=== PATIENT | female | born 1940 | race Caucasian/White ===

== ENCOUNTER → 2017-03-23 13:49 | Outpatient (CLI) | payer MEDICARE, SELFPAY | PROVIDERS: Family Provider Internal Medicine; PCP Internal Medicine; Visit Provider Internal Medicine Medical Oncology | DX: R69 Illness, unspecified (principal) ==

== ENCOUNTER → 2018-09-14 08:18 | Outpatient (CLI) | payer MEDICARE, SELFPAY ==
--- NOTE | 2018-09-14 08:25 | BD_ITS ---
STUDY: DUAL ENERGY X-RAY ABSORPTIOMETRY / DXA REASON FOR EXAM: Female, 78 years old. The patient is postmenopausal. Loss of height. TECHNIQUE: Bone Mineral Density (BMD) measurements of lumbar spine and bilateral hips were obtained. COMPARISON: Comparison is made with prior study dated September 04, 2014. FINDINGS: Lumbar Spine (L1-L4): g/cm2 (1.087) / T-score (-0.7) / Z-score (1.2) Findings are suggestive of normal bone density with a low fracture risk. Left Femur Total: g/cm2 (0.801) / T-score (-1.6) / Z-score (0.3) Left Femoral Neck: g/cm2 (0.717) / T-score (-2.3) / Z-score (-0.2) Right Femur Total: g/cm2 (0.744.) / T-score (-2.1) / Z-score (-0.1) Right Femoral Neck: g/cm2 (0.702) / T-score (-2.4) / Z-score (-0.3) The T-Scores on the most recent prior examination were: Lumbar Spine (L1-L4): There has been improvement of bone density since the previous examination. Left Femur Total: which represents a worsening of 5.9%. Right Femur Total: which represents a worsening of 1.5%. BD/Dexa Bone Density Study IMPRESSION: The patient is considered osteopenic as outlined below according to World Wisam Organization (WHO) criteria with a moderate fracture risk. There has been worsening of bone density since the previous examination. Reference Information: The T-score is the number of standard deviations above or below the standard which is normal for young adults at their peak bone mineral density. The World Health Organization (WHO) interprets the T-scores as follows: Above -1 Normal bone density Between -1 and -2.5 Osteopenia Equal to / or below -2.5 Osteoporosis As a practical clinical guideline, osteopenia may be graded as follows: Mild -1 through -1.5 Moderate -1.6 through -2.0 Severe -2.1 through -2.4 The Z-score is the number of standard deviations above or below age-matched controls. A Z-score of less than -1.5 would be considered abnormal. References: 1. NIH Osteoporosis and Related Bone Diseases http://www.osteo.org 2. International Society for Clinical Densitometry http://www.iscd.org 3. National Osteoporosis Foundation http://www.nof.org Electronically Signed: Anjel Li MD at 16:00 EST Tel [phone], Service support ,
== END ==
PROVIDERS: Family Provider Internal Medicine; PCP Internal Medicine; Referring Provider Internal Medicine Medical Oncology; Visit Provider Internal Medicine Medical Oncology
DX: M85.80 Other specified disorders of bone density and structure, unspecified site (principal); Z78.0 Asymptomatic menopausal state
CPT/HCPCS: 77080

== ENCOUNTER → 2018-12-05 08:30 | Outpatient (CLI) | payer MEDICARE, SELFPAY ==
--- NOTE | 2018-12-05 08:33 | BI_ITS ---
MAMMOGRAPHY - UNILATERAL DIAGNOSTIC: LEFT BREAST REASON FOR EXAM: Female, 78 years old. Prior right mastectomy. Left stereotactic breast biopsy. PERTINENT HISTORY: Personal history of breast cancer. TECHNIQUE: Digital unilateral breast guille (3D mammographic acquisition) in the CC and MLO projections. 2-D mediolateral oblique (MLO) and craniocaudad (CC) views of both breasts were obtained. CAD: Full Field Digital Mammography with Computer Added Detection was performed. COMPARISON: Comparison is made with prior study dated 2017 and December 01, 2016. FINDINGS: Breast Composition: The breasts are almost entirely fatty. There are no dominant masses or suspicious calcifications. Once again, a tissue clip marker is seen in the inferior medial aspect of the breast. No other significant abnormalities are identified. There has been no significant change since the prior study. BI/UNILAT LT SCRN W/CAD IMPRESSION: Stable unilateral diagnostic mammogram. One year follow-up mammogram recommended. (A) ASSESSMENT CATEGORY: BIRADS Category 2: Benign. A letter regarding these results will be sent to the patient by the facility within 30 days. Approximately 10% of breast cancers are not detected by mammography. A normal mammogram should not delay biopsy of a clinically suspicious abnormality. Electronically Signed: Anjel Li MD at 8:51 EST , Service support ,
== END ==
PROVIDERS: Family Provider Internal Medicine; PCP Internal Medicine; Referring Provider Internal Medicine Medical Oncology; Visit Provider Internal Medicine Medical Oncology
DX: Z12.31 Encounter for screening mammogram for malignant neoplasm of breast (principal); Z85.3 Personal history of malignant neoplasm of breast
CPT/HCPCS: 77061; 77063; 77067; G0279

== ENCOUNTER → 2019-12-11 08:25 | Outpatient (CLI) | payer MEDICARE, SELFPAY ==
[2019-10-09 13:17] VITALS: BMI 37.3
--- NOTE | 2019-12-11 08:29 | BI_ITS ---
MAMMOGRAPHY - UNILATERAL SCREENING: LEFT BREAST REASON FOR EXAM: Female, 79 years old. Routine annual screening examination (unilateral). PERTINENT HISTORY: Personal history of breast cancer. Prior right mastectomy. Prior left stereotactic breast biopsy. TECHNIQUE: Digital unilateral breast david (3D mammographic acquisition) in the CC and MLO projections. 2-D mediolateral oblique (MLO) and craniocaudad (CC) views of both breasts were obtained. CAD: Full Field Digital Mammography with Computer Added Detection was performed. COMPARISON: Comparison is made with prior study dated June 04, 2019 and December 02, 2017. FINDINGS: Breast Composition: The breasts are almost entirely fatty. There are no dominant masses or suspicious calcifications. A tissue clip marker is once again seen in the slightly inferior medial aspect of the left breast. No other significant abnormalities are identified. There has been no significant change since the prior study. BI/SCREEN MAMM (CAD) W/DAVID UNI L IMPRESSION: Stable unilateral screening mammogram. Yearly follow-up mammogram recommended. (A) ASSESSMENT CATEGORY: BIRADS Category 2: Benign. A letter regarding these results will be sent to the patient by the facility within 30 days. Approximately 10% of breast cancers are not detected by mammography. A normal mammogram should not delay biopsy of a clinically suspicious abnormality. [id number] Electronically Signed: Anjel Li, at 10:00 EST , Service support ,
[2019-12-11 09:11] LABS: Absolute Lymphocyte Count 1.04 X10^3/uL (0.83-4.51); Absolute Neutrophil Count 5.1 X10^3/uL (2.0-7.7); Basophil# 0.03 X10^3/uL; Basophil% 0.4 % (0-1); Eosinophil# 0.23 X10^3/uL; Eosinophils% 3.3 % (0-5); Hematocrit 43.5 % (37-47); Hemoglobin 13.9 g/dL (12.0-15.0); Lymphocyte # 1.04 X10^3/ul (4.0); Mean Corpuscular Hgb 28.8 pg (27.0-32.0); Mean Corpuscular Volume 90.2 fL (81-99); Mean Platelet Vol. 9.4 fl (6.2-12.0); Monocyte# 0.52 X10^3/uL; Monocyte% 7.5 % (0-10); NRBC Flagged by Analyzer 0 % (0-5); Neutrophil # 5.09 X10^3/uL (2.7-7.7); Neutrophil % 73.4 % (47-70); Platelet Count 234 K/mm3 (150-450); RBC Distribution Width CV 13.2 % (11.6-14.6); RBC Distribution Width SD 43.4 fl (35.1-43.9); Red Blood Count 4.82 M/mm3 (4.2-5.4); White Blood Count 6.9 K/mm3 (4.4-11.0)
[2019-12-11 09:28] LABS: ALB/GLOB Ratio 0.8 RATIO (0.9-2.4); AST(SGOT) 15 U/L (15-37); Alanine Aminotransfer ALT/SGPT 23 U/L (13-56); Albumin, Serum 3.4 g/dL (3.2-5.0); Alkaline Phosphatase 75 U/L (45-117); Anion Gap 5 (5-15); BUN 26 mg/dL (7-18); BUN/Creat Ratio 22.8 RATIO (10-20); Calcium,Total 9.7 mg/dL (8.5-10.1); Chloride 105 mmol/L (98-107); Creatinine, Serum 1.14 mg/dL (0.55-1.02); EST Glomerular Filtration Rate 49 mL/min (>60); Est Glom Filt Rate - Afr Amer 59 mL/min (>60); Globulin 4.4 g/dL (2.2-4.2); Glucose 116 mg/dL (74-106); Potassium 3.8 mmol/L (3.5-5.1); Protein, Total 7.8 g/dL (6.4-8.2); Sodium Level 139 mmol/L (136-145)
[2019-12-11 09:43] LABS: Microalbumin,Random Urine 5.2 mg/L (NO RANGE EST.); Microalbumin:Creatinine Ratio 7.5 mg/g CRE (<30 mg/g CRE)
[2019-12-11 10:06] LABS: Vitamin D,25 Hydroxy 28.2 ng/mL (29.95-100.01)
== END ==
LOC: OPBI 08:25 → PAVLAB 08:47
PROVIDERS: Family Provider Internal Medicine; PCP Internal Medicine; Referring Provider Internal Medicine; Visit Provider Internal Medicine Medical Oncology
DX: E55.9 Vitamin D deficiency, unspecified (principal); E11.9 Type 2 diabetes mellitus without complications; Z12.31 Encounter for screening mammogram for malignant neoplasm of breast; Z85.3 Personal history of malignant neoplasm of breast
CPT/HCPCS: 36415; 77063; 77067; 80053; 82043; 82306; 82570; 85025

== ENCOUNTER 2020-04-19 06:20 | Day surgery (SDC) | payer MEDICARE, SELFPAY ==
--- NOTE | 2020-03-19 02:06 | HP_ITS ---
Intake Vital Signs 03/19/20 Height 5 ft 03/19/20 Weight: 192 lb 8 oz 03/19/20 BMI 37.5 03/19/20 BP 164/101 H 03/19/20 Blood Pressure Location Lt brachial 03/19/20 Position Sitting 03/19/20 Respiration 18 03/19/20 Pulse 99 03/19/20 Pulse Source Monitor 03/19/20 Temp 98.3 F 03/19/20 Temp Source Oral 03/19/20 Pulse Oximetry (%) 97 03/19/20 Oxygen Delivery Method room air Intake Visit Reasons: CSCOPE/ COLON POLYPS Chief Complaint: colonoscopy/history colon polyps Channel Worker Required: No Is patient in pain?: No Allergies No Known Allergies Allergy (Verified 03/19/20 13:39) Medications Mcgraw-3 Fatty Acids/Fish Oil [Mcgraw 3 1,000 mg Softgel] 4 tab PO DAILY 03/25/15 [History Confirmed 03/19/20] Triamterene 37.5MG/Hctz 25MG [Dyazide (G)] 1 cap PO DAILY 03/25/15 [History Confirmed 03/19/20] Atorvastatin Calcium [Lipitor] 10 mg PO QHS 03/23/17 [History Confirmed 03/19/20] Ramipril [Altace] 5 mg PO DAILY 03/23/17 [History Confirmed 03/19/20] [facility] Medical History (Updated 03/19/20 @ 14:[address] Freddy Schwab MD) History of colon polyps (Acute) Glaucoma (Acute) Monoclonal gammopathy (Acute) Polyclonal gammopathy (Acute) Hypertension (Chronic) Surgical History (Updated 03/19/20 @ 13:36 by Kym Chavarria) H/O cataract extraction (Acute) History of colonoscopy (Acute ~2013) History of hysterectomy (Acute) History of knee replacement (Acute) History of right mastectomy (Acute) Social History (Updated 03/19/20 @ 14:[address] Freddy Schwab MD) Smoking Status: Never smoker HPI HPI HPI: JARRET MANRIQUEZ, is a 80 F who presents to the office today for HPI HPI Surgical H&P: Yes HPI: JARRET MANRIQUEZ, is a 80 F who presents to the office today for surgical consultation regarding a personal history of colon polyps and recommendation to proceed with a colonoscopy. The patient is referred by Dr. Mary Mcduffie and a written copy of my surgical consult recommendations will be returned to her. 87-year-old [facility] female. Her most recent colonoscopy was performed by Dr. Jeffery Villanueva October 02, 2014. A tubular adenoma of the descending colon was removed at that time. Recommendations by Dr. Jeffery Villanueva was to have a follow-up colonoscopy at 4 years. Apparently he has been contacted and he has declined to proceed with that recommended colonoscopy because of her age of 79. It is felt however that she is enjoying a good quality of life. She does have a sister who lived to age 92. She herself is enjoying what she feels is a good quality of life. She has had no bright red blood per rectum or melena. No abdominal pain. No unexpected weight loss. She is able to climb a flight of stairs. She denies chest pain or dyspnea on exertion. She does have some chronic lower extremity swelling. She takes a diuretic. She denies history of deep venous thrombosis. She denies known family history of colon cancer. ROS General General: Yes breast cancer; no weight change, appetite, fatigue, colon cancer or weakness HEENT HEENT: No difficulty swallowing, eye injury, eye surgery, swollen glands or hoarseness Endo Endocrine: Yes diabetes mellitus; no thyroid disease, thyroid cancer, Hair loss, heat intolerance or cold intolerance Skin Skin: No rash or changing moles Breast Breast: No left breast lump, right breast lump, nipple discharge, breast pain, abnormal mammogram, abnormal US or breast enlargement Musc Musculoskeletal: Yes back problems and gout; no arthritis, rheumatoid arthritis or joint pain Cardio Cardiovascular: Yes high blood pressure; no murmur, pacemaker, heart disease, atrial fibrillation, heart attack, heart stent, palpitations, shortness of breat with exertion or chest pain Psych Psychiatric: No depression, anxiety or hearing voices Resp Respiratory: No shortness of breath, No sleep apnea, No cough, No COPD, No asthma, No emphysema, No wheezing Gastro Gastrointestinal: No abdominal pain, No nausea or vomiting, No diarrhea, No constipation, No blood in stool, No acid reflux, No hemorrhoids, No ulcers, No gallbladder problem, No black,tarry stools James Hematologic: No blood thinners, No blood disorders, No bleeding, No anemia, No blood clots Neuro Neurologic: No system reviewed and no additional complaints, except as docu, No as per HPI, No abnormal walking, No abnormal hearing, No abnormal movements, No abnormal speech, No behavioral changes, No burning sensations, No confusion, No seizure-like activity, No unsteadiness, No dizziness, No localized weakness, No frequent falls, No headache(s), No lack of coordination, No loss of vision, No memory loss, No numbness, No other visual disturbances, No radiating pain, No restless legs, No sensory deficit, No fainting, No tingling, No tremor(s), No weakness, No other Exam Const General: cooperative, healthy appearing, comfortable, no acute distress Nutritional Appearance: obese Orientation: alert, awake, oriented x3 HENMT Head: normal to inspection Eyes General: appearance normal, both eyes and all related structures Chest Chest palpation & inspection: normal inspection of the chest Breast Palpation: No nipple discharge Resp Effort & Inspection: normal respiratory effort Auscultation: clear to auscultation bilaterally Cardio Rate: regular rate Rhythm: regular rhythm Heart Sounds: no murmurs GI Palpation: soft, no hepatosplenomegaly Auscultation: normal bowel sounds Neuro Cognition: normal cognition Extrem Other: 1-2+ non-pitting bilateral lower extremity swelling Psych Affect: normal affect Assessment & Plan Problems 1. Personal history of colonic polyps Z86.010 Plan 79-year-old [place] female who has remote history of breast cancer successfully treated. She has had a personal history of colon polyp with previous colonoscopy September 2014. Tubular adenoma of the descending colon identified at that time. Recommendations for follow-up colonoscopy at 4 years. The patient otherwise is enjoying a good quality of life currently. I believe that she is at increased risk. In great detail I have discussed with her the technique, benefit, risk and alternatives of a surveillance colonoscopy. She has had an opportunity to ask and have questions answered. She is aware that based upon her age she is at higher interventional risk. She is aware that secondary to the Covid-19 pandemic that preintervention testing will be obtained. She concurs and would like to schedule and proceed. I appreciate the opportunity of assisting with her surgical care Cc: Dr. Mary Schwab M.D., F.A.C.S. Orders Orders: Colonoscopy Today Coding Level of Care Code 50718 Diagnoses Personal history of colonic polyps Z86.010 03/19/20 1409 <Electronically signed by Freddy esparza MD> Date _ Freddy Schwab MD
[2020-03-19 13:39] VITALS: BMI 37.3
--- NOTE | 2020-04-19 06:56 | PCM.HP.BLA ---
Problem List (1) Personal history of colonic polyps Status: Acute History and Physical Date of Admission: 04/19/20 Intake Visit Reasons: CSCOPE/ COLON POLYPS Chief Complaint: colonoscopy/history colon polyps Publishing Director Required: No Is patient in pain?: No Allergies No Known Allergies Allergy (Verified 03/19/20 13:39) Medications Weare-3 Fatty Acids/Fish Oil [Weare 3 1,000 mg Softgel] 4 tab PO DAILY 03/25/15 [History Confirmed 03/19/20] Triamterene 37.5MG/Hctz 25MG [Dyazide (G)] 1 cap PO DAILY 03/25/15 [History Confirmed 03/19/20] Atorvastatin Calcium [Lipitor] 10 mg PO QHS 03/23/17 [History Confirmed 03/19/20] Ramipril [Altace] 5 mg PO DAILY 03/23/17 [History Confirmed 03/19/20] [facility] Medical History (Updated 03/19/20 @ 14:[address] Freddy Schwab MD) History of colon polyps (Acute) Glaucoma (Acute) Monoclonal gammopathy (Acute) Polyclonal gammopathy (Acute) Hypertension (Chronic) Surgical History (Updated 03/19/20 @ 13:36 by Kym Chavarria) H/O cataract extraction (Acute) History of colonoscopy (Acute ~2013) History of hysterectomy (Acute) History of knee replacement (Acute) History of right mastectomy (Acute) Social History (Updated 03/19/20 @ 14:[address] Freddy Schwab MD) Smoking Status: Never smoker HPI HPI HPI: JARRET MANRIQUEZ, is a 80 F who presents to the office today for HPI HPI Surgical H&P: Yes HPI: JARRET MANRIQUEZ, is a 80 F who presents to the office today for surgical consultation regarding a personal history of colon polyps and recommendation to proceed with a colonoscopy. The patient is referred by Dr. Mary Mcduffie and a written copy of my surgical consult recommendations will be returned to her. 87-year-old [place] female. Her most recent colonoscopy was performed by Dr. Jeffery Villanueva October 02, 2014. A tubular adenoma of the descending colon was removed at that time. Recommendations by Dr. Jeffery Villanueva was to have a follow-up colonoscopy at 4 years. Apparently he has been contacted and he has declined to proceed with that recommended colonoscopy because of her age of 79. It is felt however that she is enjoying a good quality of life. She does have a sister who lived to age 92. She herself is enjoying what she feels is a good quality of life. She has had no bright red blood per rectum or melena. No abdominal pain. No unexpected weight loss. She is able to climb a flight of stairs. She denies chest pain or dyspnea on exertion. She does have some chronic lower extremity swelling. She takes a diuretic. She denies history of deep venous thrombosis. She denies known family history of colon cancer. ROS General General: Yes breast cancer; no weight change, appetite, fatigue, colon cancer or weakness HEENT HEENT: No difficulty swallowing, eye injury, eye surgery, swollen glands or hoarseness Endo Endocrine: Yes diabetes mellitus; no thyroid disease, thyroid cancer, Hair loss, heat intolerance or cold intolerance Skin Skin: No rash or changing moles Breast Breast: No left breast lump, right breast lump, nipple discharge, breast pain, abnormal mammogram, abnormal US or breast enlargement Musc Musculoskeletal: Yes back problems and gout; no arthritis, rheumatoid arthritis or joint pain Cardio Cardiovascular: Yes high blood pressure; no murmur, pacemaker, heart disease, atrial fibrillation, heart attack, heart stent, palpitations, shortness of breat with exertion or chest pain Psych Psychiatric: No depression, anxiety or hearing voices Resp Respiratory: No shortness of breath, No sleep apnea, No cough, No COPD, No asthma, No emphysema, No wheezing Gastro Gastrointestinal: No abdominal pain, No nausea or vomiting, No diarrhea, No constipation, No blood in stool, No acid reflux, No hemorrhoids, No ulcers, No gallbladder problem, No black,tarry stools James Hematologic: No blood thinners, No blood disorders, No bleeding, No anemia, No blood clots Neuro Neurologic: No system reviewed and no additional complaints, except as docu, No as per HPI, No abnormal walking, No abnormal hearing, No abnormal movements, No abnormal speech, No behavioral changes, No burning sensations, No confusion, No seizure-like activity, No unsteadiness, No dizziness, No localized weakness, No frequent falls, No headache(s), No lack of coordination, No loss of vision, No memory loss, No numbness, No other visual disturbances, No radiating pain, No restless legs, No sensory deficit, No fainting, No tingling, No tremor(s), No weakness, No other Exam Const General: cooperative, healthy appearing, comfortable, no acute distress Nutritional Appearance: obese Orientation: alert, awake, oriented x3 HENMT Head: normal to inspection Eyes General: appearance normal, both eyes and all related structures Chest Chest palpation & inspection: normal inspection of the chest Breast Palpation: No nipple discharge Resp Effort & Inspection: normal respiratory effort Auscultation: clear to auscultation bilaterally Cardio Rate: regular rate Rhythm: regular rhythm Heart Sounds: no murmurs GI Palpation: soft, no hepatosplenomegaly Auscultation: normal bowel sounds Neuro Cognition: normal cognition Extrem Other: 1-2+ non-pitting bilateral lower extremity swelling Psych Affect: normal affect Assessment & Plan Problems 1. Personal history of colonic polyps Z86.010 Plan 79-year-old [facility] female who has remote history of breast cancer successfully treated. She has had a personal history of colon polyp with previous colonoscopy September 2014. Tubular adenoma of the descending colon identified at that time. Recommendations for follow-up colonoscopy at 4 years. The patient otherwise is enjoying a good quality of life currently. I believe that she is at increased risk. In great detail I have discussed with her the technique, benefit, risk and alternatives of a surveillance colonoscopy. She has had an opportunity to ask and have questions answered. She is aware that based upon her age she is at higher interventional risk. She is aware that secondary to the Covid-19 pandemic that preintervention testing will be obtained. She concurs and would like to schedule and proceed. I appreciate the opportunity of assisting with her surgical care Cc: Dr. Mary Schwab M.D., F.A.C.S. Orders Orders: Colonoscopy Today Coding Level of Care Code 66812 Diagnoses Personal history of colonic polyps Z86.010 03/19/20 1409 <Electronically signed by Freddy Schwab MD> Date Freddy Schwab MD I have re-examined the patient. There are no clinical changes since date of exam. Procedure Criteria Procedure Type: Elective COVID Risk Discussion: The surgeon/proceduralist and patient have discussed in detail the risk of exposure to and/or potential harm posed by the COVID-19 virus with having a surgery/procedure at this time versus the risk of delaying the surgery/procedure. It is not possible to know either the risk of delaying the surgery or procedure or chance of getting an infection with perfect accuracy, but a joint decision was made between the patient and the surgeon/proceduralist to proceed at this time with the scheduled surgery/procedure as indicated on the consent form.
[2020-04-19 06:57] VITALS: BP 147/65; PULSE 70; RESP 16; TEMP 36.6; O2SAT 96; BMI 34.0
[2020-04-19] MEDS: Lactated Ringers 1,000 ML 100 ML IV (07:06)
[2020-04-19 08:08] VITALS: BP 120/57; BP 147/65; PULSE 66; RESP 14; TEMP 36.4; O2SAT 100
[2020-04-19 08:10] VITALS: BP 116/56; BP 147/65; PULSE 66; RESP 14; O2SAT 100
--- NOTE | 2020-04-19 08:12 | OP.CCLET_ITS ---
04/19/2020 Mary Mcduffie Re : Colonoscopy procedure for Alivia Huerta Dear Froy This procedure was performed on Sunday, April 19, 2020. My impressions and recommendations are as follows: Impressions : - Non-thrombosed external hemorrhoids, non-thrombosed internal hemorrhoids and internal hemorrhoids that prolapse with straining, but spontaneously regress to the resting position (Grade II) found on digital rectal exam. - Tortuous colon. - The examination was otherwise normal. - No specimens collected. Recommendations : - Discharge patient to home. - Resume previous diet. - Continue present medications. - Repeat colonoscopy is not recommended due to current age (66 years or older) for screening purposes. My findings are described in the full procedure note, which is enclosed. If I can be of further assistance, please feel free to contact me at Doctor phone number(s): Work: . Sincerely, Freddy Schwab MD 04/19/2020 8:12:00 AM This report has been signed electronically.
--- NOTE | 2020-04-19 08:12 | OP.COLON_ITS ---
Patient Name: Alivia Huerta Procedure Date: 04/19/2020 7:43 AM Date of : 1940 Age: 80 Procedure: Colonoscopy Indications: High risk colon cancer surveillance: Personal history of colonic polyps Providers: Freddy Schwab MD Referring MD: Mary Mcduffie Medicines: See the Anesthesia note for documentation of the administered medications Patient Profile: Last Colonoscopy: September 2014. Complications: No immediate complications. Procedure: Pre-Anesthesia Assessment: - Prior to the procedure, a History and Physical was performed, and patient medications and allergies were reviewed. The patient's tolerance of previous anesthesia was also reviewed. The risks and benefits of the procedure and the sedation options and risks were discussed with the patient. All questions were answered, and informed consent was obtained. Prior Anticoagulants: The patient has taken no previous anticoagulant or antiplatelet agents. ASA Grade Assessment: II - A patient with mild systemic disease. After reviewing the risks and benefits, the patient was deemed in satisfactory condition to undergo the procedure. After I obtained informed consent, the scope was passed under direct vision. Throughout the procedure, the patient's blood pressure, pulse, and oxygen saturations were monitored continuously. The colonoscope was introduced through the anus and advanced to the cecum, identified by appendiceal orifice and ileocecal valve. The colonoscopy was performed without difficulty. The patient tolerated the procedure well. The quality of the bowel preparation was good. The ileocecal valve and the appendiceal orifice were photographed. Scope In: 7:51:43 AM Scope Withdrawal Time 0 hours 6 minutes 50 seconds Scope Out: 8:03:42 AM Total Procedure Duration Time 0 hours 11 minutes 59 seconds Findings: The digital rectal exam findings include non-thrombosed external hemorrhoids, non-thrombosed internal hemorrhoids and internal hemorrhoids that prolapse with straining, but spontaneously regress to the resting position (Grade II). The colon (entire examined portion) was moderately tortuous. Advancing the scope required using manual pressure. The exam was otherwise without abnormality. Impression: - Non-thrombosed external hemorrhoids, non-thrombosed internal hemorrhoids and internal hemorrhoids that prolapse with straining, but spontaneously regress to the resting position (Grade II) found on digital rectal exam. - Tortuous colon. - The examination was otherwise normal. - No specimens collected. Recommendation: - Discharge patient to home. - Resume previous diet. - Continue present medications. - Repeat colonoscopy is not recommended due to current age (66 years or older) for screening purposes. Procedure Code(s): --- Professional --- 29146, Colonoscopy, flexible; diagnostic, including collection of specimen(s) by brushing or washing, when performed (separate procedure) Diagnosis Code(s): --- Professional --- Z86.010, Personal history of colonic polyps K64.1, Second degree hemorrhoids K64.4, Residual hemorrhoidal skin tags Q43.8, Other specified congenital malformations of intestine CPT copyright 2017 [employer]. All rights reserved. The codes documented in this report are preliminary and upon rodent control worker review may be revised to meet current compliance requirements. Freddy Schwab MD 04/19/2020 8:12:00 AM This report has been signed electronically. Number of Addenda: 0 Note Initiated On: 04/19/2020 7:43 AM
[2020-04-19 08:15] VITALS: BP 119/62; BP 147/65; PULSE 66; RESP 14; O2SAT 100
[2020-04-19 08:24] VITALS: BP 116/60; BP 147/65; PULSE 65; RESP 14; TEMP 36.3; O2SAT 100
[2020-04-19] MEDS: Cefazolin 2 GM in 0.9% Normal Saline 100 ML IV (08:56)
[2020-04-19 10:09] VITALS: BP 147/65
== END 2020-04-19 10:12 | disposition home or self-care (01) ==
LOC: EN 06:20 → AC 06:21
PROVIDERS: Anesthesiology; PCP Internal Medicine; Referring Provider Internal Medicine; Visit Provider Surgery
PROC: 0DJD8ZZ Inspection of Lower Intestinal Tract, Via Natural or Artificial Opening Endoscopic (ICD-10-PCS; CPT 45378; principal; 2020-04-19 07:25)
DX: Z12.11 Encounter for screening for malignant neoplasm of colon (principal); K64.1 Second degree hemorrhoids; K64.4 Residual hemorrhoidal skin tags; Q43.8 Other specified congenital malformations of intestine; I10 Essential (primary) hypertension; Z86.010 Personal history of colon polyps; Z85.3 Personal history of malignant neoplasm of breast; Z79.899 Other long term (current) drug therapy; Z11.59 Encounter for screening for other viral diseases
CPT/HCPCS: G0105; 87635; G2023; J7120; J2405; U0003

== ENCOUNTER → 2020-04-23 09:58 | Outpatient (CLI) | payer MEDICARE, SELFPAY ==
[2020-03-19 13:39] VITALS: BMI 37.3
[2020-04-19 06:57] VITALS: BMI 34.0
--- NOTE | 2020-04-23 10:05 | CDU_ITS ---
Reason For Study: Carotid atherosclerosis Rt. Velocities/BP Lt. Velocities/BP Prox CCA 94.3/13.4 cm/sec. Prox CCA 79.6/15.6 cm/sec. Mid CCA 73.4/16 cm/sec. Mid CCA 70.4/13.9 cm/sec. Dist CCA 65.6/17.3 cm/sec. Dist CCA 56.9/11.4 cm/sec. Prox ICA 52/11.3 cm/sec. Prox ICA 44.7/10.7 cm/sec. Mid ICA 84.9/28.9 cm/sec. Mid ICA 64/22.5 cm/sec. Dist ICA 64/23.1 cm/sec. Dist ICA 94.9/29.6 cm/sec. Rt. ICA/CCA = 1.2. Lt. ICA/CCA = 1.3. Prox ECA 84.9/10.2 cm/sec. Prox ECA 80.2/5.3 cm/sec. Rt. Vert. 25.8 cm/sec. Lt. Vert. 45.4/12.4 cm/sec. Right Extracranial There is intimal thickening but no significant atherosclerotic plaque noted in the right common carotid artery. There is homogeneous, irregular atherosclerotic plaque noted in the right internal carotid artery. There is intimal thickening but no significant atherosclerotic plaque noted in the right external carotid artery. Antegrade flow is noted in the right vertebral artery. Abnormal waveforms noted in the right vertebral artery. Left Extracranial There is intimal thickening but no significant atherosclerotic plaque noted in the left common carotid artery. There is heterogeneous, irregular atherosclerotic plaque noted in the left internal carotid artery. There is intimal thickening but no significant atherosclerotic plaque noted in the left external carotid artery. Antegrade flow is noted in the left vertebral artery. Procedure Carotid Duplex [id number]. Exam performed in department. Interpretation Summary Mild (<50%) stenosis right extracranial internal carotid. Mild (<50%) stenosis left extracranial internal carotid. Flow within the vertebral arteries is antegrade bilaterally. An abnormal right vertebral artery waveform suggests occlusion distal to the level of imaging. Clinical correlation is advised. Ordering Physician: Mary Mcduffie Referring Physician: Mary Mcduffie Performed By: Elizabeth Olivas RVT
== END ==
PROVIDERS: PCP Internal Medicine; Referring Provider Internal Medicine; Visit Provider Internal Medicine
DX: I65.23 Occlusion and stenosis of bilateral carotid arteries (principal)
CPT/HCPCS: 93880

== ENCOUNTER 2020-08-21 20:52 | Inpatient (IN) | payer MEDICARE, SELFPAY ==
[2020-08-21 20:53] VITALS: BP 144/78; PULSE 91; RESP 18; TEMP 36.8; O2SAT 92; BMI 35.9
--- NOTE | 2020-08-21 21:45 | EKG12_ITS ---
Test Reason : COUGH Blood Pressure : / mmHG Vent. Rate : 078 BPM Atrial Rate : 078 BPM P-R Int : 294 ms QRS Dur : 084 ms QT Int : 406 ms P-R-T Axes : 033 -19 024 degrees QTc Int : 462 ms Sinus rhythm with 1st degree A-V block Otherwise normal ECG Confirmed by MILAN URRUTIA, JW ([id number]), editorial assistant YISEL DORSEY ([id number]) on 08/27/2020 8:13:37 AM Referred By: BRYANT Confirmed By:JW YATES MD
--- NOTE | 2020-08-21 22:05 | RAD_ITS ---
STUDY: X-RAY CHEST REASON FOR EXAM: Female, 80 years old. PT ARRIVES WITH 2 WEEK LONG ILLNESS THAT HAS CAUSED WEAKNESS AND COUGH TECHNIQUE: AP portable COMPARISON: 11/21/2014 FINDINGS: Nonspecific elevation of right hemidiaphragm.. There is interstitial thickening in both lower lobes with patchy densities possibly representing atypical viral pneumonia. There is no demonstrated pleural abnormality. Normal size heart. Normal mediastinum and sha. Normal visualized pulmonary arteries. Mildly calcified aortic arch and descending thoracic aorta. Normal visualized thoracic spine. Normal visualized ribs, clavicles, and shoulders. There is no demonstrated abnormality of the visualized soft tissue structures of the upper abdomen. RAD/Chest 1 View (Portable) IMPRESSION: Findings suspicious for Covid 19 pneumonia. Clinical correlation recommended. Electronically Signed: Darrion Haskins MD at 22:32 EDT , Service support ,
[2020-08-21 22:07] LABS: Absolute Lymphocyte Count 0.41 X10^3/uL (0.83-4.51); Absolute Neutrophil Count 6.1 X10^3/uL (2.0-7.7); Basophil# 0.02 X10^3/uL; Basophil% 0.3 % (0-1); Eosinophil# 0.03 X10^3/uL; Eosinophils% 0.4 % (0-5); Hematocrit 42.9 % (37-47); Hemoglobin 13.9 g/dL (12.0-15.0); Lymphocyte # 0.41 X10^3/ul (4.0); Lymphocyte % 5.8 % (19-41); Mean Corp Hgb Conc 32.4 g/dL (32-36); Mean Corpuscular Volume 89.4 fL (81-99); Mean Platelet Vol. 9.1 fl (6.2-12.0); Monocyte# 0.53 X10^3/uL; Monocyte% 7.5 % (0-10); NRBC Flagged by Analyzer 0 % (0-5); Neutrophil # 6.08 X10^3/uL (2.7-7.7); Neutrophil % 85.4 % (47-70); POSITIVE DIFFERENTIAL YES; Platelet Count 292 K/mm3 (150-450); RBC Distribution Width CV 13.1 % (11.6-14.6); RBC Distribution Width SD 42.9 fl (35.1-43.9); White Blood Count 7.1 K/mm3 (4.4-11.0)
[2020-08-21 22:13] LABS: Differential Indicated SCAN CRITERIA MET
[2020-08-21 22:26] LABS: ALB/GLOB Ratio 0.6 RATIO (0.9-2.4); AST(SGOT) 39 U/L (15-37); Alanine Aminotransfer ALT/SGPT 62 U/L (13-56); Albumin, Serum 2.9 g/dL (3.2-5.0); Alkaline Phosphatase 57 U/L (45-117); Anion Gap 9 (5-15); BUN 19 mg/dL (7-18); BUN/Creat Ratio 19.3 RATIO (10-20); Calcium,Total 9.3 mg/dL (8.5-10.1); Chloride 102 mmol/L (98-107); Creatinine, Serum 0.98 mg/dL (0.55-1.02); EST Glomerular Filtration Rate 58 mL/min (>60); Est Glom Filt Rate - Afr Amer 70 mL/min (>60); Estimated Creatinine Clearance 32.34 ml/min; Glucose 140 mg/dL (74-106); Potassium 3.5 mmol/L (3.5-5.1); Protein, Total 7.9 g/dL (6.4-8.2); Sodium Level 136 mmol/L (136-145)
[2020-08-21 22:32] LABS: Differential Comment SCANNED
--- NOTE | 2020-08-21 22:35 | ED.DCSUM_ITS ---
History of Present Illness Chief Complaint: Cough Informant: Patient Narrative: 80-year-old female with past medical history of hypertension presents with concern for weakness. Patient states that she has had weakness with intermittent cough over the past 1 week. Denies any fever, chills, nausea, vomiting, abdominal pain, urinary symptoms, chest pain, shortness of breath. States that her sister has similar symptoms. Past Medical History - Allergies and Home Meds Allergies/Adverse Reactions: Allergies No Known Allergies Allergy (Verified 08/21/20 20:53) Primary Care Physician: Mary Mcduffie MD [Primary Care Provider] - Past Medical History: - - HTN Surgical History: no surgical history Lives: With Family Smoking Status: Never smoker Alcohol: None Drugs: None Review of Systems General: Reports: Malaise. Denies: Chills, Fever, Sweats Eyes: Denies: Visual changes - bilaterally, Diplopia ENT: Denies: Rhinorrhea, Sore throat Cardiovascular: Denies: Chest pain, Palpitations Respiratory: Reports: Cough. Denies: Dyspnea, Dyspnea on exertion Gastrointestinal: Denies: Abdominal pain, Nausea, Vomiting, Diarrhea, Melena, Hematochezia Genitourinary: Denies: Dysuria, Hematuria, Frequency Musculoskeletal: Denies: Back pain, Extremity Pain Skin: Denies: Rash, Wounds Neurological: Denies: Headache, Weakness, Numbness Physical Exam Vital Signs/Narrative: Vital Signs Temp Pulse Resp BP Pulse Ox 08/21/20 20:53 98.3 F 91 18 144/78 H 92 Inital Vital Signs reviewed: Yes General: Well nourished, Well developed, No Acute Distress Head: Normocephalic, Atraumatic Eyes: Perrl, EOMI ENT: Moist mucous membranes, No rhinorrhea Neck: Supple, Nontender Cardiovascular: Regular rate, Regular rhythm, No murmurs Respiratory: No distress, CTA bilaterally, Chest nontender Abdomen: Soft, Nontender, Nondistended, Normal bowel sounds Back: Nontender, Normal Inspection Extremities: Nontender, No edema Skin: Normal color, No rash Neurological: Alert, Oriented x3, Cranial nerves II-XII grossly intact, Normal Strength, Normal Sensation Psychological: Normal affect, Normal Mood Diagnostic/Tx/Re-eval Chest X-Ray - ED: 1 View, - - Bilateral infiltrates. Concerning for COVID. Clinical Impression(s) from Imaging Studies Chest X-Ray 08/21/20 22:05 IMPRESSION: Findings suspicious for Covid 19 pneumonia. Clinical correlation recommended. Electronically Signed: Darrion Haskins MD at 22:32 EDT , Service support , Laboratory Data 08/21/20 08/21/20 08/21/20 22:00 22:00 23:11 WBC 7.1 RBC 4.80 Hgb 13.9 Hct 42.9 MCV 89.4 MCH 29.0 MCHC 32.4 RDW Std Deviation 42.9 RDW Coeff of [place]udonne 13.1 Plt Count 292 MPV 9.1 Immature Gran % (Auto) 0.600 Neut % (Auto) 85.4 H Lymph % (Auto) 5.8 L [place] % (Auto) 7.5 Eos % (Auto) 0.4 Baso % (Auto) 0.3 Absolute Neuts (auto) 6.1 Absolute Lymphs (auto) 0.41 L Nucleated RBC % 0 Differential Comment SCANNED Sodium 136 Potassium 3.5 Chloride 102 Carbon Dioxide 25.0 Anion Gap 9 BUN 19 H Creatinine 0.98 Estim Creat Clear Calc 32.34 Est GFR (MDRD) Af Amer 70 Est GFR (MDRD) Non-Af 58 L BUN/Creatinine Ratio 19.3 Glucose 140 H Calcium 9.3 Total Bilirubin 0.50 AST 39 H ALT 62 H Alkaline Phosphatase 57 Troponin I < 0.015 Total Protein 7.9 Albumin 2.9 L Globulin 5.0 H Albumin/Globulin Ratio 0.6 L Urine Color Yellow Urine Clarity Clear Urine pH 7.0 Ur Specific [place] 1.010 Urine Protein Negative Urine Glucose (UA) Normal Urine Ketones Negative Urine Occult Blood Negative Urine Nitrite Negative Urine Bilirubin Negative Urine Urobilinogen Normal Ur Leukocyte Esterase Negative Urine RBC 0 SEEN Urine WBC 0 SEEN Ur Squamous Epith Cells 0-5 SEEN Urine Bacteria 0 SEEN Urine Mucus 0 SEEN - Rhythm Strip Rhythm Strip: Sinus Rhythm Rate: 78 Ectopy: None - EKG Initial EKG Interpretation: Sinus Rhythm - Normal sinus rhythm at 78 bpm. OK interval of 294 ms with first-degree AV block. QTC of 462 ms. No evidence of ST elevation or depression at this time. - Medical Decision Making Appears weak but nontoxic. Vital signs within normal limits. Chest x-ray concerning for coronavirus. Test pending. Other lab work within normal limits. Patient 90 to 91% on room air at rest. Attempt ambulate the patient however she cannot ambulate more than a few feet without collapsing. Patient will be admitted for further treatment and evaluation. Table at time of admission. Impression: 1. COVID pneumonia 2. Weakness 3. Inability to ambulate ED Disposition - Plan for ED Patient: Disposition: [facility] Care [facility] Referrals: Mary Mcduffie MD [Primary Care Provider] -
[2020-08-21 23:14] VITALS: BP 158/83; PULSE 80; RESP 18; O2SAT 91
[2020-08-21 23:16] LABS: Bacteria 0 SEEN /hpf (None Seen); Mucous, Urine 0 SEEN /hpf (<or=2+); Red Blood Cells-Urine 0 SEEN /hpf (0-5); White Blood Cells 0 SEEN /hpf (0-5)
[2020-08-21 23:17] LABS: Color, Urine Yellow (Yellow); Glucose, Dipstick Normal (Normal); Ketone-Dipstick Negative (Negative); Leukocyte Esterase-Dipstick Negative /ul (Negative); Nitrite-Dipstick Negative (Negative); Occult Blood-Urine Negative /ul (Negative); Protein-Dipstick Negative (Negative); Urine Bilirubin Dipstick Negative (Negative); Urine Clarity Clear (Clear); Urine Urobilinogen Normal (Normal)
[2020-08-21 23:18] VITALS: O2SAT 91
[2020-08-21 23:25] LABS: Squamous Epithelial Cells - UA 0-5 SEEN /hpf (5-10)
[2020-08-22] VITALS (8 sets, daily range): BP systolic 128–157; BP diastolic 59–79; PULSE 65–90; RESP 16–19; TEMP 36.4–36.9; O2SAT 92–94; BMI 33.5; BMI 33.6
--- NOTE | 2020-08-22 01:02 | HP.PCM_ITS ---
Problem List (1) Suspected COVID-19 virus infection Status: Acute (2) Personal history of colonic polyps Status: Chronic (3) Osteopenia Status: Chronic (4) Monoclonal gammopathy Status: Chronic (5) Malignant neoplasm of right female breast Status: Resolved (6) History of right breast cancer Status: Chronic History of Present Illness Date of Admission: 08/22/20 Chief Complaint: malaise. shortness of breath The patient is a 80 year old F Nan with a 2-week history of malaise and shortness of breath. Patient initially denied any sick contacts but appears informed the emergency room physician that her sister was sick. Addressed that with the patient and stated that her sister has been sick with similar symptoms. She denies any direct contact with anyone with COVID-19 is states that she has not been out. So patient presented here and was 91% on room air and was just very listless and fatigued. Chest x-ray was concerning for a COVID-19 infection and patient was checked for COVID-19, results are still pending at the time of this dictation. [] Past Medical History Past Medical History (Chronic Problems): Chronic Problems (Last Updated 03/19/20 @ 13:36 by Kym Chavarria) Personal history of colonic polyps (Chronic) Osteopenia (Chronic) Monoclonal gammopathy (Chronic) History of right breast cancer (Chronic) Medical History: Medical History (Last Reviewed 08/22/20 @ 01:[address] Jigar Reynolds, ) Glaucoma H40.9 History of colon polyps Z86.010 Monoclonal gammopathy D47.2 Polyclonal gammopathy D89.0 Hypertension I10 Allergies No Known Allergies Allergy (Verified 08/21/20 20:53) Home Medications: Ambulatory Orders Medication Instructions Recorded Dubach-3 Fatty Acids/Fish Oil 4 tab PO DAILY 03/25/15 [Dubach 3 1,000 mg Softgel] Triamterene 37.5MG/Hctz 25MG 1 cap PO DAILY 03/25/15 [Dyazide (G)] Atorvastatin Calcium [Lipitor] 10 mg PO QHS 03/23/17 Ramipril [Altace] 5 mg PO DAILY 03/23/17 Potassium Chloride [Klor-Con M10] 10 meq PO DAILY 08/21/20 Surgical History: Surgical History (Last Reviewed 08/22/20 @ 01:[address] Jigar Jopperi, DO) H/O cataract extraction Z98.49 BILATERAL WITH STENT PLACEMENT TO RELIEVE PRESSURE D/T GLAUCOMA History of colonoscopy Onset Date: ~2013 Z98.890 History of hysterectomy Z90.710 History of knee replacement Z96.659 History of right mastectomy Z90.11 Surgical History: no surgical history Lives: With Family Smoking Status: Never smoker Alcohol: None Drugs: None - *Family History Sibling History Items: - - Sister with similar symptoms. Review of Systems Constitutional: Reports: Chills, Malaise, Weakness. Denies: Anorexia, Fever Eyes: Denies: Blurred vision, Double vision HEENT: Denies: Head Aches, Sinus Congestion, Sinus Drainage Cardiovascular: Denies: Chest Pain, Palpitations Respiratory: Reports: Cough, Shortness of Breath, Sputum production - She is unclear of the color Gastrointestinal: Denies: Abdominal Pain, Nausea, Vomiting Genitourinary: Denies: Dysuria Musculoskeletal: Denies: Joint Pain, Joint Tenderness Skin: Denies: Rash, Wounds Neurological: Denies: Numbness, Tingling, Focal weakness Psychiatric: Denies: Anxiety, Depression Hematologic/ Lymphatic: Denies: Easy Bruising, Easy Bleeding, Hx of blood clot Comment: All review of systems were negative except as mentioned above in the history of present illness and the other review of systems. VTE Information - Inpt Only VTE Present on Admission: No VTE Mechan Device Prophylaxis: None VTE Pharm Prophylaxis ordered?: Yes - Physical Exam Vitals/I&O's: Vital Signs Temp Pulse Resp BP Pulse Ox 36.6 C 80 19 H 139/71 H 94 08/22/20 00:17 08/22/20 00:17 08/22/20 00:17 08/22/20 00:17 08/22/20 00:17 Oxygen Delivery Method Room Air Weight: 83.461 kg Body Mass Index (BMI) 35.9 General: Alert, - - Hard of hearing. Listless. Afebrile. HEENT: Atraumatic, Normocephalic Oral: - - Wearing a mask, did not remove. Neck: No Nodes, Thyroid Normal Size and Texture Lungs: Diminished, - - Few crackles in the left base Cardiovascular: Regular rate, Regular Rhythm, Normal S1, Normal S2, No murmurs Abdomen: Bowel Sounds Present, Soft, Non Tender, Non-Distended, No Hepato- splenomegaly Extremities: No edema, No Calf Tenderness Skin: No rashes, No breakdown Musculoskeletal: No Tenderness to Palpation of Joints or Extremities, No Muscle Wasting Psych/Mental Status: Appropriate, Flat Affect Laboratory Results 08/21/20 22:00: WBC 7.1, RBC 4.80, Hgb 13.9, Hct 42.9, MCV 89.4, MCH 29.0, MCHC 32.4, RDW Std Deviation 42.9, RDW Coeff of Dieudonne 13.1, Plt Count 292, MPV 9.1, Immature Gran % (Auto) 0.600, Neut % (Auto) 85.4 H, Lymph % (Auto) 5.8 L, [place] % (Auto) 7.5, Eos % (Auto) 0.4, Baso % (Auto) 0.3, Absolute Neuts (auto) 6.1, Absolute Lymphs (auto) 0.41 L, Nucleated RBC % 0, Differential Comment SCANNED 08/21/20 22:00: Sodium 136, Potassium 3.5, Chloride 102, Carbon Dioxide 25.0, Anion Gap 9, BUN 19 H, Creatinine 0.98, Estim Creat Clear Calc 32.34, Est GFR (MDRD) Af Amer 70, Est GFR (MDRD) Non-Af 58 L, BUN/Creatinine Ratio 19.3, Glucose 140 H, Calcium 9.3, Total Bilirubin 0.50, AST 39 H, ALT 62 H, Alkaline Phosphatase 57, Troponin I < 0.015, Total Protein 7.9, Albumin 2.9 L, Globulin 5.0 H, Albumin/Globulin Ratio 0.6 L 08/21/20 23:11: Urine Color Yellow, Urine Clarity Clear, Urine pH 7.0, Ur Specific [place] 1.010, Urine Protein Negative, Urine Glucose (UA) Normal, Urine Ketones Negative, Urine Occult Blood Negative, Urine Nitrite Negative, Urine Bilirubin Negative, Urine Urobilinogen Normal, Ur Leukocyte Esterase Negative, Urine RBC 0 SEEN, Urine WBC 0 SEEN, Ur Squamous Epith Cells 0-5 SEEN, Urine Bacteria 0 SEEN, Urine Mucus 0 SEEN 08/21/20 23:30: COVID-19 (JENN) Pending Chest x-ray reviewed and showed some flow filtrates in the bases. Elevated right hemidiaphragm. Right hemidiaphragm was noted back in 2014 but not present in 2011 on review of prior chest x-rays. Assessment/Plan All Active Problems (Last Updated 03/19/20 @ 13:36 by Kym Chavarria) Suspected COVID-19 virus infection (Acute) Malignant neoplasm of right female breast (Resolved) 1. Suspected acute COVID-19 infection: Symptoms have been ongoing for roughly 2 weeks and has a sister with similar symptoms. Given the findings on her chest x-ray will put the patient in the COVID cohort unit. Start dexamethasone. Consult infectious disease for further recommendations (such as already to severe and convalescent plasma0 on additional treatments. If COVID-19 comes back negative consider rechecking given the high likelihood that this may be a true COVID-19 infection but also recommend checking for additional viral etiologies. However if positive then would not proceed with necessarily checking for additional viral etiologies. I did advise the patient to tell her family members that apparently there is 3 people to live with her, to tell them to quarantine from family for the next 14 days if they do need to interact that they should do so with a mask and the other folks wearing a mask as well. Will check additional lab work this, such as d-dimer, LDH and so forth given the high likelihood of a COVID infection. 2. Debility: Likely related with that infection as above. Physical and O ccupational Therapy to evaluate and treat. 3. 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 Certainly complicates the patient's respiratory issues. Though she is not r equiring any oxygen at this time. 4. VTE prophylaxis: Enoxaparin 30 mg twice daily 5. Advanced care planning: Patient unsure. Discussed with the patient and 5 member. Encouraged him to discuss further and told them that I would leave the patient a full CODE STATUS at this time but that this may be changed at any point during her hospitalization or afterwards. Inpatient E&M: [id number] Init Hosp L3
[2020-08-22] MEDS: dexAMETHasone 10 MG/ML Vial 6 MG IV ×2 (01:40→09:43)
[2020-08-22 01:51] LABS: Fibrinogen 673 mg/dl (203-444); International Normalized Ratio 1.1; Prothrombin Time (Protime)PT. 13.6 SECONDS (11.7-14.9)
[2020-08-22 01:55] LABS: CPK Total, Creatine Kinase 81 U/L (26-192); LDH 285 U/L (84-246)
[2020-08-22 01:59] LABS: D-Dimer Quantitative (DVT/PE) 1.36 FEU/ug/m (0.27-0.49)
[2020-08-22 02:00] LABS: Procalcitonin 0.13 ng/mL (0.00-0.09)
[2020-08-22 02:03] LABS: Lactic Acid 1.2 mmol/L (0.4-1.9)
--- NOTE | 2020-08-22 04:57 | NURSING ---
Patient refused influenza vaccination.
[2020-08-22 04:58] LABS: Absolute Lymphocyte Count 0.42 X10^3/uL (0.83-4.51); Absolute Neutrophil Count 6.6 X10^3/uL (2.0-7.7); Basophil# 0.01 X10^3/uL; Basophil% 0.1 % (0-1); Eosinophil# 0.01 X10^3/uL; Eosinophils% 0.1 % (0-5); Hematocrit 43.1 % (37-47); Hemoglobin 13.6 g/dL (12.0-15.0); Lymphocyte # 0.42 X10^3/ul (4.0); Lymphocyte % 5.7 % (19-41); Mean Corp Hgb Conc 31.6 g/dL (32-36); Mean Corpuscular Hgb 28.3 pg (27.0-32.0); Mean Corpuscular Volume 89.8 fL (81-99); Mean Platelet Vol. 8.9 fl (6.2-12.0); Monocyte% 2.7 % (0-10); NRBC Flagged by Analyzer 0 % (0-5); Neutrophil # 6.61 X10^3/uL (2.7-7.7); Neutrophil % 90.4 % (47-70); POSITIVE DIFFERENTIAL YES; Platelet Count 307 K/mm3 (150-450); RBC Distribution Width CV 13.1 % (11.6-14.6); RBC Distribution Width SD 43.3 fl (35.1-43.9); White Blood Count 7.3 K/mm3 (4.4-11.0)
[2020-08-22 05:00] LABS: Differential Indicated SCAN CRITERIA MET
[2020-08-22 05:14] LABS: Differential Comment SCANNED
[2020-08-22 05:19] LABS: BUN 18 mg/dL (7-18); EST Glomerular Filtration Rate 64 mL/min (>60); Estimated Creatinine Clearance 35.21 ml/min; Glucose 149 mg/dL (74-106)
[2020-08-22 05:20] LABS: ALB/GLOB Ratio 0.5 RATIO (0.9-2.4); AST(SGOT) 30 U/L (15-37); Alanine Aminotransfer ALT/SGPT 59 U/L (13-56); Albumin, Serum 2.8 g/dL (3.2-5.0); Alkaline Phosphatase 58 U/L (45-117); Anion Gap 6 (5-15); BUN/Creat Ratio 20.1 RATIO (10-20); Calcium,Total 9.1 mg/dL (8.5-10.1); Chloride 104 mmol/L (98-107); Est Glom Filt Rate - Afr Amer 78 mL/min (>60); Globulin 5.1 g/dL (2.2-4.2); Potassium 3.9 mmol/L (3.5-5.1); Protein, Total 7.9 g/dL (6.4-8.2); Sodium Level 135 mmol/L (136-145)
--- NOTE | 2020-08-22 07:00 | CT_ITS ---
STUDY: CTA CHEST REASON FOR EXAM: Female, 80 years old. + COVID, ELEVATED D-DIMER RADIATION DOSAGE (If Supplied By Facility): CTDIvol = ( 12.05 ) mGy, DLP = ( 368.60 ) mGycm TECHNIQUE: The examination was performed with the intravenous administration of IV 100mL [id number]-370. Post-processing of the angiographic images was performed, with multiplanar reformation and 3D reconstruction. Individualized dose optimization techniques were used for this CT. COMPARISON: None. FINDINGS: Normal enhancement of the main pulmonary artery and right and left pulmonary arteries. Normal enhancement of the bilateral peripheral pulmonary arteries. There is no demonstrated pulmonary embolism. There is atherosclerotic calcification of the aortic arch with tortuosity. There is no demonstrated aortic dissection. There are calcifications of the coronary arteries. Mildly enlarged mediastinal lymph nodes. The largest measures 2.1 cm at the level of the aortic arch. Normal hilar regions. Normal visualized trachea and bronchi. The lungs are well expanded. Multiple patchy areas of groundglass appearance in both lungs involving the upper and lower lobes in a preferential peripheral distribution more prominent on the right side. Findings are suggestive of Covid pneumonic infiltrates with the patient''s history of a positive Covid test. There is also evidence of atelectasis at the right lung base. Normal pleura. Normal chest wall structures. There are degenerative changes of thoracic spine. Bilateral adrenal hyperplasia. Calcified splenic granulomas. CT/CTA Chest W/WO Contrast IMPRESSION: Bilateral patchy areas of the groundglass appearance made preferential peripheral distribution in keeping with Covid pneumonitis Electronically Signed: Anjel Li, at 8:44 EDT , Service support ,
[2020-08-22] MEDS: Enoxaparin 80 MG/0.8 ML Syringe SC (07:10)
[2020-08-22] MEDS: 0.9% Saline Lock 10 ML Syringe IV ×3 (07:11→20:35)
[2020-08-22] MEDS: Omega-3 Acid Ethyl Esters 1 GM Capsule 4 GM PO (09:41)
[2020-08-22] MEDS: Ramipril 5 MG Capsule PO (09:43)
[2020-08-22] MEDS: Triamterene 37.5MG/Hctz 25MG Capsule 1 CAP PO (09:43)
--- NOTE | 2020-08-22 11:01 | PCM.HP.ID ---
Problem List (1) COVID-19 Status: Acute Reason for Consult: covid Consulted by: Dr. Reynolds History of Present Illness: The patient is a 80 year old Alevism F with MGUS, presented with 2 weeks of mild cough, fatigue, mild aches. Had some nausea. No change in taste/smell. Lives with 2 sisters, both have been sick with similar symptoms. No abd pain, no chest pain. Came to ED due to persistent symptoms. As low as 91% on RA, started on dex, feeling better this AM. Full ROS performed and neg except as noted above - Medical History Past Medical History (Chronic Problems): Chronic Problems (Last Reviewed 08/22/20 @ 01:[address] Jigar Reynolds, DO) Personal history of colonic polyps (Chronic) Osteopenia (Chronic) Monoclonal gammopathy (Chronic) History of right breast cancer (Chronic) Allergies/Adverse Reactions: Allergies No Known Allergies Allergy (Verified 08/21/20 20:53) Home Medications: Ambulatory Orders Medication Instructions Recorded [place]-3 Fatty Acids/Fish Oil 4 tab PO DAILY 03/25/15 [[place] 3 1,000 mg Softgel] Triamterene 37.5MG/Hctz 25MG 1 cap PO DAILY 03/25/15 [Dyazide (G)] Atorvastatin Calcium [Lipitor] 10 mg PO QHS 03/23/17 Ramipril [Altace] 5 mg PO DAILY 03/23/17 Potassium Chloride [Klor-Con M10] 10 meq PO DAILY 08/21/20 - Social History Tobacco Use: non-smoker Vital Signs Temp Pulse Resp BP Pulse Ox 97.8 F 70 18 157/79 H 92 08/22/20 09:04 08/22/20 09:04 08/22/20 09:04 08/22/20 09:04 08/22/20 09:04 Oxygen Delivery Method Room Air Weight: 78.018 kg Body Mass Index (BMI) 33.5 Laboratory Tests Past 24 Hrs 08/21/20 08/21/20 08/21/20 22:00 22:00 23:11 WBC 7.1 RBC 4.80 Hgb 13.9 Hct 42.9 MCV 89.4 MCH 29.0 MCHC 32.4 RDW Std Deviation 42.9 RDW Coeff of Dieudonne 13.1 Plt Count 292 MPV 9.1 Immature Gran % (Auto) 0.600 Neut % (Auto) 85.4 H Lymph % (Auto) 5.8 L [place] % (Auto) 7.5 Eos % (Auto) 0.4 Baso % (Auto) 0.3 Absolute Neuts (auto) 6.1 Absolute Lymphs (auto) 0.41 L Nucleated RBC % 0 Differential Comment SCANNED PT INR Fibrinogen D-Dimer Quant (PE/DVT) Sodium 136 Potassium 3.5 Chloride 102 Carbon Dioxide 25.0 Anion Gap 9 BUN 19 H Creatinine 0.98 Estim Creat Clear Calc 32.34 Est GFR (MDRD) Af Amer 70 Est GFR (MDRD) Non-Af 58 L BUN/Creatinine Ratio 19.3 Glucose 140 H Lactic Acid Calcium 9.3 Total Bilirubin 0.50 AST 39 H ALT 62 H Alkaline Phosphatase 57 Lactate Dehydrogenase Total Creatine Kinase Troponin I < 0.015 Total Protein 7.9 Albumin 2.9 L Globulin 5.0 H Albumin/Globulin Ratio 0.6 L Procalcitonin Urine Color Yellow Urine Clarity Clear Urine pH 7.0 Ur Specific [place] 1.010 Urine Protein Negative Urine Glucose (UA) Normal Urine Ketones Negative Urine Occult Blood Negative Urine Nitrite Negative Urine Bilirubin Negative Urine Urobilinogen Normal Ur Leukocyte Esterase Negative Urine RBC 0 SEEN Urine WBC 0 SEEN Ur Squamous Epith Cells 0-5 SEEN Urine Bacteria 0 SEEN Urine Mucus 0 SEEN COVID-19 (JENN) 08/21/20 08/22/20 08/22/20 23:30 01:25 01:25 WBC RBC Hgb Hct MCV MCH MCHC RDW Std Deviation RDW Coeff of Dieudonne Plt Count MPV Immature Gran % (Auto) Neut % (Auto) Lymph % (Auto) [place] % (Auto) Eos % (Auto) Baso % (Auto) Absolute Neuts (auto) Absolute Lymphs (auto) Nucleated RBC % Differential Comment PT 13.6 INR 1.1 Fibrinogen 673 H D-Dimer Quant (PE/DVT) 1.36 H* Sodium Potassium Chloride Carbon Dioxide Anion Gap BUN Creatinine Estim Creat Clear Calc Est GFR (MDRD) Af Amer Est GFR (MDRD) Non-Af BUN/Creatinine Ratio Glucose Lactic Acid Calcium Total Bilirubin AST ALT Alkaline Phosphatase Lactate Dehydrogenase 285 H Total Creatine Kinase 81 Troponin I < 0.015 Total Protein Albumin Globulin Albumin/Globulin Ratio Procalcitonin Urine Color Urine Clarity Urine pH Ur Specific [place] Urine Protein Urine Glucose (UA) Urine Ketones Urine Occult Blood Urine Nitrite Urine Bilirubin Urine Urobilinogen Ur Leukocyte Esterase Urine RBC Urine WBC Ur Squamous Epith Cells Urine Bacteria Urine Mucus COVID-19 (JENN) Detected 08/22/20 08/22/20 08/22/20 01:25 01:25 04:50 WBC 7.3 RBC 4.80 Hgb 13.6 Hct 43.1 MCV 89.8 MCH 28.3 MCHC 31.6 L RDW Std Deviation 43.3 RDW Coeff of Dieudonne 13.1 Plt Count 307 MPV 8.9 Immature Gran % (Auto) 1.000 H Neut % (Auto) 90.4 H Lymph % (Auto) 5.7 L [place] % (Auto) 2.7 Eos % (Auto) 0.1 Baso % (Auto) 0.1 Absolute Neuts (auto) 6.6 Absolute Lymphs (auto) 0.42 L Nucleated RBC % 0 Differential Comment SCANNED PT INR Fibrinogen D-Dimer Quant (PE/DVT) Sodium Potassium Chloride Carbon Dioxide Anion Gap BUN Creatinine Estim Creat Clear Calc Est GFR (MDRD) Af Amer Est GFR (MDRD) Non-Af BUN/Creatinine Ratio Glucose Lactic Acid 1.2 Calcium Total Bilirubin AST ALT Alkaline Phosphatase Lactate Dehydrogenase Total Creatine Kinase Troponin I Total Protein Albumin Globulin Albumin/Globulin Ratio Procalcitonin 0.13 H Urine Color Urine Clarity Urine pH Ur Specific [place] Urine Protein Urine Glucose (UA) Urine Ketones Urine Occult Blood Urine Nitrite Urine Bilirubin Urine Urobilinogen Ur Leukocyte Esterase Urine RBC Urine WBC Ur Squamous Epith Cells Urine Bacteria Urine Mucus COVID-19 (JENN) 08/22/20 04:50 WBC RBC Hgb Hct MCV MCH MCHC RDW Std Deviation RDW Coeff of Dieudonne Plt Count MPV Immature Gran % (Auto) Neut % (Auto) Lymph % (Auto) [place] % (Auto) Eos % (Auto) Baso % (Auto) Absolute Neuts (auto) Absolute Lymphs (auto) Nucleated RBC % Differential Comment PT INR Fibrinogen D-Dimer Quant (PE/DVT) Sodium 135 L Potassium 3.9 Chloride 104 Carbon Dioxide 25.0 Anion Gap 6 BUN 18 Creatinine 0.90 Estim Creat Clear Calc 35.21 Est GFR (MDRD) Af Amer 78 Est GFR (MDRD) Non-Af 64 BUN/Creatinine Ratio 20.1 H Glucose 149 H Lactic Acid Calcium 9.1 Total Bilirubin 0.40 AST 30 ALT 59 H Alkaline Phosphatase 58 Lactate Dehydrogenase Total Creatine Kinase Troponin I Total Protein 7.9 Albumin 2.8 L Globulin 5.1 H Albumin/Globulin Ratio 0.5 L Procalcitonin Urine Color Urine Clarity Urine pH Ur Specific [place] Urine Protein Urine Glucose (UA) Urine Ketones Urine Occult Blood Urine Nitrite Urine Bilirubin Urine Urobilinogen Ur Leukocyte Esterase Urine RBC Urine WBC Ur Squamous Epith Cells Urine Bacteria Urine Mucus COVID-19 (JENN) - Other Studies Radiology: [] reviewed Other Studies: [] Route of nutrition/ use of supplements: [] Nutritional Intake: [] IV Site: [] Soler Catheter: [] - Physical Exam General: Alert, Oriented x3, Cooperative, No apparent distress HEENT: Atraumatic, PERRLA, EOMI Neck: Supple, No Nodes Lungs: Diminished Cardiovascular: Regular rate, Regular Rhythm, No murmurs Abdomen: Soft, Non Tender, Non-Distended Extremities: No edema Skin: No rashes IV Site: Peripheral, without redness Musculoskeletal: No Tenderness to Palpation of Joints or Extremities Neurological: Cranial nerves II-XII grossly intact - Assessment/Plan Antibiotics: [] Assessment/Plan: [] Active and Suspected Problems (Last Reviewed 08/22/20 @ 01:[address] Jigar Reynolds, DO) Suspected COVID-19 virus infection (Acute) Covid with acute hypoxic resp failure - feeling basically fine, but sats are low 90s on RA. On dex. Reviewed EUA and risks/benefits of remdesivr with her. She wishes to think about it and see how it goes. With mild symptoms for past 2 weeks, I think this is reasonable. CT neg for PE. Would decrease lovenox to 40 bid. Will follow, thank you, d/w Dr. Stevens
--- NOTE | 2020-08-22 11:14 | PCM.NTREPORT ---
Nutrition Therapy Report - History Current diet / nutrition support order:: regular, 120mL ensure enlive 4x/day - Anthropometric Measurements Height:: 5 ft Weight:: 78.018 kg Body Mass Index (BMI):: 33.5 - Relevant Labs Relevant Labs:: MCHC 31.6 g/dL (32-36) L 08/22/20 04:50 Immature Gran % (Auto) 1.000 % (0.0-0.9) H 08/22/20 04:50 Neut % (Auto) 90.4 % (47-70) H 08/22/20 04:50 Lymph % (Auto) 5.7 % (19-41) L 08/22/20 04:50 Absolute Lymphs (auto) 0.42 X10^3/uL (0.83-4.51) L 08/22/20 04:50 Fibrinogen 673 mg/dl (203-444) H 08/22/20 01:25 D-Dimer Quant (PE/DVT) 1.36 FEU/ug/m (0.27-0.49) H* 08/22/20 01:25 Sodium 135 mmol/L (136-145) L 08/22/20 04:50 BUN 19 mg/dL (7-18) H 08/21/20 22:00 Est GFR (MDRD) Non-Af 58 mL/min (>60) L 08/21/20 22:00 BUN/Creatinine Ratio 20.1 RATIO (10-20) H 08/22/20 04:50 Glucose 149 mg/dL (74-106) H 08/22/20 04:50 AST 39 U/L (15-37) H 08/21/20 22:00 ALT 59 U/L (13-56) H 08/22/20 04:50 Lactate Dehydrogenase 285 U/L (84-246) H 08/22/20 01:25 Albumin 2.8 g/dL (3.2-5.0) L 08/22/20 04:50 Globulin 5.1 g/dL (2.2-4.2) H 08/22/20 04:50 Albumin/Globulin Ratio 0.5 RATIO (0.9-2.4) L 08/22/20 04:50 Procalcitonin 0.13 ng/mL (0.00-0.09) H 08/22/20 01:25 - Assessment Food / Nutrition-Related History:: Spoke w/ pt via room phone d/t isolation for COVID-19. 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 States current appetite is not too bad w/ fair intake at breakfast. No special diet followed normally at home. Believes UBW ~184# and CBW 172#-12#/6.5% wt loss x 2 weeks, significant for malnutrition. - Nutrition Diagnosis Problem / Etiology / Signs & Symptoms (PES):: Pt w/ severe, acute malnutrition related to inadequate energy intake during COVID-19 illness as evidenced by estimated PO intake meeting less than 50% of pt's estimated energy needs for greater than 5 days, wt loss of 12#/6.5% x 2 weeks SANIPRACTIC PHYSICIAN. Evidence of Malnutrition Exists:: Yes Severe PCM:: Acute Illness - Nutrition Intervention Nutrition Prescription:: 8536-7160 calories, 68-78 g protein/day - Food / Nutrient Delivery Interventions Summary of nutrition intervention:: Pt states she likes Ensure Enlive as ordered. Explained need for adequate nutrition during acute illness to prevent further wt loss. Pt w/ no questions for RDN at this time. Nutrition support ordered as / adjusted to:: continue regular diet and ensure enlive 120mL 4x/day - MNT Monitoring Further MNT monitoring and evaluation required?: Yes MNT Follow-up in:: 3-5 days
--- NOTE | 2020-08-22 14:30 | CASEMGMT ---
Addendum entered by Jazzmine Huitron 08/23/20 14:15: Pt will be discharging home w/new script for Dexamethasone. JENY PABLO made pt aware and she asks if [facility] to have this delivered to her home tomorrow. Call placed to [facility] and spoke w/Sammy. He states they will deliver this tomorrow. Pt states she will place some calls to find someone who can pick her up to take her home @ discharge. Original Note: JENY PABLO ASSESSMENT COVID-19 positive. JENY PABLO placed call to pt's room. Introduced self and role of JENY PABLO @ [facility]. Pt is A/O at this time and answers all questions appropriately. Care providers, pharmacy, and demographics verified/updated at this time. PCP: Dr Mcduffie Specialists: Dr Kirkpatrick--onc/hem Preferred Pharmacy: [facility] in [place]. Pt states they deliver to the home. Call placed to [facility] Delivery orders have to be in by 1130 in order for delivery to be done on same-day. Insurance: MCR A, B Prescription Benefit: None Living Will/HPOA: Has a LW and Healthcare POA on file @ [facility]. Sister, Lillie, is listed as POA. Pt states Lillie has slight dementia. POHari also has alternative people listed (Ama and Toyin Huerta). Pt made aware if Lillie is unable to make make decisions, the alternate people listed could do this. LNOK: Sister, Ama Moreira Sara Living Arrangements: Lives w/sisters Lillie and Iliana in one-story home w/no steps to enter. Pt is aware her sisters should both self-quarantine x [address] Cason, he recommends they be tested for COVID. Pt states there is 1 1/2 baths in the home. Pt was independent w/ADL's prior to hospitalization. She states they all have separate bedrooms. Reviewed Home isolation precautions w/pt. She states she usually is the one to buy groceries but thinks neighbors or friends will be able to garbage pick up man groceries/supplies as needed. She states they have a freezer with food and canned foods in the home as well. 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 JENY PABLO recommended pt have someone purchase disinfectants for the home. She voices understanding. Pt states her great-niece and live right next door. Her great-niece does the laundry. Pt/sisters share home mgmt tasks. Sisters can help as needed. Transportation: Hire drivers, friends, neighbors. Pt states thinks one of her friends or neighbors will be willing to pick her up @ D/C. JENY PABLO instructed pt to ensure whoever would be driving her home know she is COVID + and that she and the recycle driver both wear masks. Pt voices understanding. DME: has the following DME: Cane, Walker, W/C. She does not have Home O2. has electricity via [employer] during the day and at night when the sun goes down, they have a back-up generator. Pt states thinks shower chair may be useful. Pt made aware of [facility] provider for DME in [place] and will give RN information on this with contact number to give to pt. HHC/SNF: No history of either. Pt states does not want to go to a SNF, she wishes to return home. She states she feels she is improving and that she'll be well enough to return home. Pt wishes to return home and states has no concerns with going home at time of discharge. CM to follow for home oxygen needs and any further discharge planning/needs. Pt voices no further concerns/needs at this time. Advised pt to ask for CM if any further questions/concerns/needs arise. Voices understanding. PLAN: Home w/family support and discharge plans in place. PT/OT evals pending. Zenobia SPANN RN, CM
--- NOTE | 2020-08-22 17:04 | PCM.HOSP.N ---
Hospitalist Note Patient was seen and examined in ICU today, she has not required supplemental oxygen today, I talked briefly with infectious diseases about her care-patient is not in favor of taking remdesivir or convalescent plasma. Patient will be seen by physical therapy today, I anticipate reevaluating the patient tomorrow and if she does not require oxygen and is able to ambulate with minimal assistance, she may be able to be discharged home.
[2020-08-22] MEDS: Enoxaparin 40 MG/0.4 ML Syringe SC (20:33)
[2020-08-22] MEDS: Atorvastatin Calcium 10 MG Tablet PO (20:33)
[2020-08-23 02:30] VITALS: BP 135/76; PULSE 65; RESP 18; TEMP 36.3; O2SAT 92
[2020-08-23 08:00] VITALS: PULSE 73; RESP 16; O2SAT 92
[2020-08-23 08:30] VITALS: BP 123/50; PULSE 73; RESP 16; TEMP 36.5; O2SAT 92
[2020-08-23] MEDS: Enoxaparin 40 MG/0.4 ML Syringe SC (09:42)
[2020-08-23] MEDS: dexAMETHasone 10 MG/ML Vial 6 MG IV (09:43)
[2020-08-23] MEDS: 0.9% Saline Lock 10 ML Syringe IV (09:44)
[2020-08-23] MEDS: Omega-3 Acid Ethyl Esters 1 GM Capsule 4 GM PO (09:45)
[2020-08-23] MEDS: Ramipril 5 MG Capsule PO (09:46)
--- NOTE | 2020-08-23 10:40 | CASEMGMT ---
Pt does have a living will and health care POA in the converted echart. Forms printed and placed on chart. Pt names sister Lillie Huerta as HCPOA. GARRICK Watkins
[2020-08-23 13:07] VITALS: O2SAT 91; O2SAT 94
--- NOTE | 2020-08-23 15:02 | DCINST_ITS ---
- Discharge Diagnoses Current Active Problems: Current Active and Chronic Problems (Last Reviewed 08/22/20 @ 01:[address] Jigar Reynolds, DO) Suspected COVID-19 virus infection (Acute) COVID-19 (Acute) Personal history of colonic polyps (Chronic) Osteopenia (Chronic) Monoclonal gammopathy (Chronic) History of right breast cancer (Chronic) You will use the following diet at home:: No restrictions Your food should be the consistency of: Regular Your liquids should be the consistency of: Regular/Thin Discharge Activity: Return to Normal Activity Weight Bearing Status: Full weight bearing Allergies/Adverse Reactions: Allergies No Known Allergies Allergy (Verified 08/21/20 20:53) Medications to take at Discharge [place]-3 Fatty Acids/Fish Oil [[place] 3 1,000 mg Softgel] 4 tab PO DAILY 03/25/15 Triamterene 37.5MG/Hctz 25MG [Dyazide (G)] 1 cap PO DAILY 03/25/15 Atorvastatin Calcium [Lipitor] 10 mg PO QHS 03/23/17 Ramipril [Altace] 5 mg PO DAILY 03/23/17 Potassium Chloride [Klor-Con M10] 10 meq PO DAILY 08/21/20 Primary Care Physician: Mary Mcduffie MD [Primary Care Provider] - Please follow up with your Primary Care Physician in: in 2 weeks Test Results: Test results from this visit will be discussed in further detail at your follow- up appointment, if applicable.
[2020-08-23 15:03] VITALS: BP 138/73; PULSE 86; RESP 18; TEMP 36.6; O2SAT 92
--- NOTE | 2020-08-23 16:09 | PN.ID_ITS ---
Patient Problems: Active and Suspected Problems (Last Reviewed 08/22/20 @ 01:[address] Jigar Reynolds, DO) Suspected COVID-19 virus infection (Acute) COVID-19 (Acute) Subjective: Feeling much better, no fever, mild cough. - Physical Exam Vitals/I&O's: Vital Signs Temp Pulse Resp BP Pulse Ox 97.8 F 86 18 138/73 H 92 08/23/20 15:03 08/23/20 15:03 08/23/20 15:03 08/23/20 15:03 08/23/20 15:03 Oxygen Delivery Method Room Air Weight: 78.018 kg Body Mass Index (BMI) 33.5 Intake and Output for Last 24 Hours 08/21/20 08/22/20 08/23/20 23:59 23:59 23:59 Intake Total 500 / 740 850 / 850 Balance 500 / 740 850 / 850 General: Alert, Cooperative, No apparent distress Lungs: Clear to auscultation, Normal air movement Cardiovascular: Regular rate, Regular Rhythm Abdomen: Soft, Non Tender, Non-Distended Skin: No rashes Current Medications Acetaminophen (Acetaminophen 325 Mg Tablet) 650 mg PO Q6H PRN PRN PRN Reason: Pain Score 1-10/Temp > 100.7 F Atorvastatin Calcium (Atorvastatin Calcium 10 Mg Tablet) 10 mg PO QHS [facility] Last Admin: 08/22/20 20:33 Dose: 10 mg Documented by: Dexamethasone Sodium Phosphate (Dexamethasone 10 Mg/Ml Vial) 6 mg IV DAILY [facility] Last Admin: 08/23/20 09:43 Dose: 6 mg Documented by: Enoxaparin Sodium (Enoxaparin 40 Mg/0.4 Ml Syringe) 40 mg SC BID [facility] Last Admin: 08/23/20 09:42 Dose: 40 mg Documented by: Nutritional Formula (Lactose Free) (Ensure Enlive 120 Ml Liquid) 120 ml PO 4X/DAY [facility] Last Admin: 08/23/20 14:40 Dose: 120 ml Documented by: [id number]-Ushx Ethyl Esters ([place]-3 Acid Ethyl Esters 1 Gm Capsule) 4 gm PO DAILY [facility] Last Admin: 08/23/20 09:45 Dose: 4 gm Documented by: Ondansetron HCl (Ondansetron 4 Mg/2 Ml Vial) 4 mg IV Q8H PRN PRN PRN Reason: NAUSEA/VOMITING Potassium Chloride (Potassium Chloride 10 Meq Tablet) 10 meq PO DAILYCM [facility] Last Admin: 08/23/20 09:46 Dose: 10 meq Documented by: Ramipril (Ramipril 5 Mg Capsule) 5 mg PO DAILY [facility] Last Admin: 08/23/20 09:46 Dose: 5 mg Documented by: Sodium Chloride (0.9% Saline Lock 10 Ml Syringe) 10 - 40 ml IV UD PRN PRN Reason: SALINE FLUSH Last Admin: 08/23/20 09:44 Dose: 10 ml Documented by: Triamterene/HCTZ (Triamterene 37.5mg/Hctz 25mg Capsule) 1 cap PO DAILY [facility] Last Admin: 08/23/20 10:41 Dose: Not Given Documented by: Medical Necessity - Tobacco Use Smoking Status: Never smoker Route of nutrition/ use of supplements: [] Nutritional Intake: [] IV Site: [] Soler Catheter: [] - Assessment/Plan Antibiotics: [] Assessment/Plan: [] Active and Suspected Problems (Last Reviewed 08/22/20 @ 01:[address] Jigar Reynolds, DO) Suspected COVID-19 virus infection (Acute) Covid with acute hypoxic resp failure - feeling basically fine, sats better, ok for d/c home off of dex Will follow, d/w Dr. Stevens
--- NOTE | 2020-08-25 16:36 | PCM.DC.SUM ---
Discharge Date and Diagnosis - Problem List Patient Problems: Active and Suspected Problems (Last Reviewed 08/22/20 @ 01:[address] Jigar Reynolds DO) Suspected COVID-19 virus infection (Acute) COVID-19 (Acute) Date of Admission: 08/22/20 Date of Discharge: 08/23/20 - Primary Discharge Diagnosis Acute Problems: Active Problems (Last Reviewed 08/22/20 @ 01:[address] Jigar Reynolds DO) #1 COVID-19 virus infection (Acute) #2 generalized weakness secondary to COVID-19 infection - Secondary Discharge Diagnosis Chronic Problems: Chronic Problems (Last Reviewed 08/22/20 @ 01:[address] Jigar Reynolds DO) Personal history of colonic polyps (Chronic) Osteopenia (Chronic) Monoclonal gammopathy (Chronic) History of right breast cancer (Chronic) Hospital Course and Treatment Operations: None Procedures: None Summary of Care Provided: The patient is a 80 year old F was seen in the emergency room at [facility] with a complaint of cough and generalized weakness. Work-up in the emergency room included a chest x-ray which was concerning for coronavirus, vital signs are within normal limits, patient was unable to ambulate however due to generalized weakness. Patient's COVID-19 test was positive, she was admitted to [facility], oxygen saturation was monitored. Patient was seen in consultation by infectious diseases the next day, patient refused any medications other than dexamethasone for her COVID-19 infection. Patient's oxygen was checked on ambulation and at rest before discharge and she did not qualify for oxygen. Patient was seen by PT and OT, she appeared to ambulate with minimal assistance with a walker. On 08/23/2020, patient was seen and examined: On examination she appeared in good health and spirits, she does not appear to be in any distress. Vital signs as documented. Skin warm and dry and without overt rashes. Neck without JVD, thyroid appears normal, trachea is midline, neck is supple. Lungs clear, normal air movement was noted. Heart exam notable for regular rhythm, normal sounds and absence of murmurs, rubs or gallops. Abdomen unremarkable and without evidence of organomegaly, masses, or abdominal aortic enlargement, bowel sounds are present in all 4 quadrants, no abdominal tenderness was noted. Extremities nonedematous, no cyanosis was noted, no clubbing was noted. Neuro: Cranial nerves II through XII are grossly intact, no focal motor deficits were noted, sensation to light touch and pinprick is intact, motor exam 5/5 throughout. Psych: Patient is alert and oriented x3, she does not appear anxious or depressed, she does not appear agitated. On 08/23/2020, patient was seen and examined and discharged home in stable condition. Patient Problems: Active and Suspected Problems (Last Reviewed 08/22/20 @ 01:[address] Jigar Reynolds, DO) Suspected COVID-19 virus infection (Acute) COVID-19 (Acute) - Physical Exam Vitals/I&O's: Vital Signs Temp Pulse Resp BP Pulse Ox 97.8 F 86 18 138/73 H 92 08/23/20 15:03 08/23/20 15:03 08/23/20 15:03 08/23/20 15:03 08/23/20 15:03 Oxygen Delivery Method Room Air Weight: 78.018 kg Body Mass Index (BMI) 33.5 Intake and Output for Last 24 Hours 08/23/20 08/24/20 08/25/20 23:59 23:59 23:59 Intake Total 850 / 850 Balance 850 / 850 Discharge Activity: Return to Normal Activity Weight Bearing Status: Full weight bearing Home Medications: Medications to take at Discharge [place]-3 Fatty Acids/Fish Oil [[place] 3 1,000 mg Softgel] 4 tab PO DAILY 03/25/15 Triamterene 37.5MG/Hctz 25MG [Dyazide (G)] 1 cap PO DAILY 03/25/15 Atorvastatin Calcium [Lipitor] 10 mg PO QHS 03/23/17 Ramipril [Altace] 5 mg PO DAILY 03/23/17 Potassium Chloride [Klor-Con M10] 10 meq PO DAILY 08/21/20 Primary Care Physician: Mary Mcduffie MD [Primary Care Provider] - Please follow up with your Primary Care Physician in: in 2 weeks Disposition: Home Minutes spent on discharge:: 31 Patient Condition:: Stable Medical Necessity - Tobacco Use Smoking Status: Never smoker Meaningful Use Info Meaningful Use Diagnoses (Choose all that apply): None applicable Inpatient E&M: 86455 Disch Hosp
--- NOTE | 2020-08-26 14:52 | CASEMGMT ---
JENY PABLO Discharge Follow-up Phone Call: ELIJAH: Aure Strata: 2 Call Date: 08/26/2020 Discharge Date: 08/23/2020 Time of Call: 1450 Admitting Diagnosis: COVID-19 Discharge follow-up call placed to pt. Pt states she has been doing fine since discharge. Denies any concerns with shortness of breath. States she has been able to get around without difficulty and uses a walker to be safe. Pt states she did not get her prescription from [facility] pharmacy, note by ID states ok for pt to be discharged without the dexamethasone. This was explained to patient. Pt states she has been able to isolate without difficulty. Pt denies any other concerns or questions at this time. Derian Hernandez RN CM
== END 2020-08-23 17:21 | disposition home or self-care (01) | DRG 177 ==
LOC: ED 08-22 00:06 → ICU 08-22 01:13
PROVIDERS: Emergency Provider Emergency Medicine; PCP Internal Medicine; Visit Provider Internal Medicine
DX: U07.1 COVID-19 (principal); E43 Unspecified severe protein-calorie malnutrition; D47.2 Monoclonal gammopathy; M85.80 Other specified disorders of bone density and structure, unspecified site; I10 Essential (primary) hypertension; Z68.35 Body mass index [BMI] 35.0-35.9, adult; Z87.19 Personal history of other diseases of the digestive system; Z85.3 Personal history of malignant neoplasm of breast; Z90.11 Acquired absence of right breast and nipple
CPT/HCPCS: 71045; 71275; 80053; 81001; 82550; 83605; 83615; 84145; 84484; 85025; 85379; 85384; 85610; 87635; 93005; 97161; 97166; 99281; 99285; Q9967; A4216; U0003

== ENCOUNTER → 2020-10-23 08:53 | Outpatient (CLI) | payer MEDICARE, SELFPAY ==
[2020-08-22 11:16] VITALS: BMI 33.5
--- NOTE | 2020-10-23 08:59 | BD_ITS ---
STUDY: DUAL ENERGY X-RAY ABSORPTIOMETRY / DXA REASON FOR EXAM: Female, 80 years old. 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 COMPARISON: Comparison is made with prior study dated 09/14/2018 FINDINGS: Lumbar Spine (L1-L4): g/cm2 (1.241) / T-score (0.3) / Z-score (2.2) Findings are suggestive of normal bone density with a low fracture risk. Left Femur Total: g/cm2 (0.823) / T-score (-1.5) / Z-score (0.6) Left Femoral Neck: g/cm2 (0.719) / T-score (-2.3) / Z-score (-0.1) Right Femur Total: g/cm2 (0.743) / T-score (-2.1) / Z-score (0.0) Right Femoral Neck: g/cm2 (0.708) / T-score (-2.4) / Z-score (-0.2) The T-Scores on the most recent prior examination were: Lumbar Spine (L1-L4): There has been improvement of bone density since the previous examination. Left Femur Total: which represents an improvement of 2.7%. Right Femur Total: which represents a worsening of 0.1%. BD/Dexa Bone Density Study IMPRESSION: The patient is considered osteopenic as outlined below according to World Wisam Organization (WHO) criteria with a high fracture risk. There has been improvement of bone density since the previous examination. Reference Information: The T-score is the number of standard deviations above or below the standard which is normal for young adults at their peak bone mineral density. The World Health Organization (WHO) interprets the T-scores as follows: Above -1 Normal bone density Between -1 and -2.5 Osteopenia Equal to / or below -2.5 Osteoporosis As a practical clinical guideline, osteopenia may be graded as follows: Mild -1 through -1.5 Moderate -1.6 through -2.0 Severe -2.1 through -2.4 The Z-score is the number of standard deviations above or below age-matched controls. A Z-score of less than -1.5 would be considered abnormal. References: 1. NIH Osteoporosis and Related Bone Diseases www osteo.org 2. International Society for Clinical Densitometry www iscd.org 3. National Osteoporosis Foundation www nof.org Electronically Signed: Anjel Li, at 15:10 EST , Service support ,
== END ==
PROVIDERS: PCP Internal Medicine; Referring Provider Internal Medicine; Visit Provider Internal Medicine
DX: M85.80 Other specified disorders of bone density and structure, unspecified site (principal); Z78.0 Asymptomatic menopausal state
CPT/HCPCS: 77080

== ENCOUNTER → 2020-12-16 10:06 | Outpatient (CLI) | payer MEDICARE, SELFPAY ==
[2020-08-22 11:16] VITALS: BMI 33.5
--- NOTE | 2020-12-16 10:10 | BI_ITS ---
MAMMOGRAPHY - UNILATERAL SCREENING: LEFT BREAST REASON FOR EXAM: Female, 80 years old. Routine annual screening examination (unilateral). PERTINENT HISTORY: Personal history of breast cancer. Prior right mastectomy. Prior left stereotactic breast biopsy. TECHNIQUE: Digital unilateral breast david (3D mammographic acquisition) in the CC and MLO projections. 2-D mediolateral oblique (MLO) and craniocaudad (CC) views of both breasts were obtained. CAD: Full Field Digital Mammography with Computer Added Detection was performed. COMPARISON: Comparison is made with prior examination dated 12/11/2019 and 12/05/2018. FINDINGS: Breast Composition: The breasts are almost entirely fatty. There are no dominant masses or suspicious calcifications. A tissue clip marker is once again seen in the inferior medial aspect of the left breast. No other significant abnormalities are identified. There has been no significant change since the prior study. BI/SCREEN MAMM (CAD) W/DAVID UNI L IMPRESSION: Stable unilateral screening mammogram. Yearly follow-up mammogram recommended. (A) ASSESSMENT CATEGORY: BIRADS Category 2: Benign. A letter regarding these results will be sent to the patient by the facility within 30 days. Approximately 10% of breast cancers are not detected by mammography. A normal mammogram should not delay biopsy of a clinically suspicious abnormality. [id number] Electronically Signed: Anjel Li MD at 11:24 EST , Service support ,
== END ==
PROVIDERS: PCP Internal Medicine; Referring Provider Internal Medicine Medical Oncology; Visit Provider Internal Medicine Medical Oncology
DX: Z12.31 Encounter for screening mammogram for malignant neoplasm of breast (principal); Z90.11 Acquired absence of right breast and nipple; Z85.3 Personal history of malignant neoplasm of breast
CPT/HCPCS: 77063; 77067

== ENCOUNTER 2021-12-23 09:06 | Outpatient (CLI) | payer MEDICARE, SELFPAY ==
--- NOTE | 2021-12-23 09:09 | BI_ITS ---
MAMMOGRAPHY - UNILATERAL SCREENING: LEFT BREAST REASON FOR EXAM: Female, 81 years old. Routine annual screening examination (unilateral). PERTINENT HISTORY: Personal history of breast cancer. Prior right mastectomy. Prior left stereotactic breast biopsy. TECHNIQUE: Digital unilateral breast david (3D mammographic acquisition) in the CC and MLO projections. 2-D mediolateral oblique (MLO) and craniocaudad (CC) views of both breasts were obtained. CAD: Full Field Digital Mammography with Computer Added Detection was performed. COMPARISON: Comparison is made with prior examination dated 12/16/2020 and 12/11/2019. FINDINGS: Breast Composition: The breasts are almost entirely fatty. There are no dominant masses or suspicious calcifications. A tissue clip marker is once again seen in the inferior medial aspect of the left breast. No other significant abnormalities are identified. There has been no significant change since the prior study. BI/SCREEN MAMM (CAD) W/DAVID UNI L IMPRESSION: Stable unilateral screening mammogram. Yearly follow-up mammogram recommended. (A) ASSESSMENT CATEGORY: BIRADS Category 2: Benign. A letter regarding these results will be sent to the patient by the facility within 30 days. Approximately 10% of breast cancers are not detected by mammography. A normal mammogram should not delay biopsy of a clinically suspicious abnormality. [id number] Electronically Signed: Anjel Li MD at 10:01 EST ,
== END 2021-12-23 23:59 | disposition home or self-care (01) ==
PROVIDERS: PCP Internal Medicine; Referring Provider Internal Medicine Medical Oncology; Visit Provider Internal Medicine Medical Oncology
DX: Z12.31 Encounter for screening mammogram for malignant neoplasm of breast (principal); Z85.3 Personal history of malignant neoplasm of breast; Z90.11 Acquired absence of right breast and nipple
CPT/HCPCS: 77063; 77067

== ENCOUNTER 2022-02-24 13:40 | Outpatient (CLI) | payer MEDICARE, SELFPAY ==
[2022-02-24 14:16] LABS: Absolute Lymphocyte Count 1.49 X10^3/uL (0.83-4.51); Absolute Neutrophil Count 5.7 X10^3/uL (2.0-7.7); Basophil# 0.04 X10^3/uL; Basophil% 0.5 % (0-1); Eosinophil# 0.29 X10^3/uL; Eosinophils% 3.6 % (0-5); Hematocrit 40.2 % (37-47); Hemoglobin 12.8 g/dL (12.0-15.0); Lymphocyte # 1.49 X10^3/ul (0.83-4.51); Lymphocyte % 18.3 % (19-41); Mean Corp Hgb Conc 31.8 g/dL (32-36); Mean Corpuscular Hgb 29.8 pg (27.0-32.0); Mean Corpuscular Volume 93.5 fL (81-99); Mean Platelet Vol. 9.1 fl (6.2-12.0); Monocyte# 0.62 X10^3/uL; Monocyte% 7.6 % (0-10); NRBC Flagged by Analyzer 0 % (0-5); Neutrophil # 5.68 X10^3/uL (2.7-7.7); Neutrophil % 69.6 % (47-70); Platelet Count 235 K/mm3 (150-450); RBC Distribution Width CV 13.7 % (11.6-14.6); RBC Distribution Width SD 46.7 fl (35.1-43.9); White Blood Count 8.2 K/mm3 (4.4-11.0)
[2022-02-24 14:41] LABS: ALB/GLOB Ratio 0.9 RATIO (0.9-2.4); AST(SGOT) 19 U/L (15-37); Alanine Aminotransfer ALT/SGPT 27 U/L (13-56); Albumin, Serum 3.6 g/dL (3.2-5.0); Alkaline Phosphatase 64 U/L (45-117); Anion Gap 5 (5-15); BUN 24 mg/dL (7-18); BUN/Creat Ratio 23.5 RATIO (10-20); Calcium,Total 9.4 mg/dL (8.5-10.1); Chloride 104 mmol/L (98-107); Creatinine, Serum 1.02 mg/dL (0.55-1.02); EST Glomerular Filtration Rate 55 mL/min (>60); Est Glom Filt Rate - Afr Amer 67 mL/min (>60); Globulin 4.2 g/dL (2.2-4.2); Glucose 110 mg/dL (74-106); Protein, Total 7.8 g/dL (6.4-8.2); Sodium Level 137 mmol/L (136-145)
[2022-02-24 14:46] LABS: Hemoglobin A1c 6.4 % (3.8-5.6)
[2022-02-24 15:20] LABS: Microalbumin,Random Urine < 5.0 mg/L (NO RANGE EST.)
== END 2022-02-24 23:59 | disposition home or self-care (01) ==
LOC: LAB 13:42
PROVIDERS: PCP Internal Medicine; Referring Provider Internal Medicine; Visit Provider Internal Medicine
DX: E11.22 Type 2 diabetes mellitus with diabetic chronic kidney disease (principal); N18.30 Chronic kidney disease, stage 3 unspecified
CPT/HCPCS: 36415; 80053; 82043; 82570; 83036; 85025

== ENCOUNTER → 2022-11-10 | Outpatient (CLI) | payer MEDICARE, SELFPAY ==
--- NOTE | 2022-11-10 08:49 | BD_ITS ---
STUDY: DUAL ENERGY X-RAY ABSORPTIOMETRY / DXA REASON FOR EXAM: Female, 82 years old. [id number] TECHNIQUE: Bone Mineral Density (BMD) measurements of lumbar spine and bilateral hips were obtained. COMPARISON: Comparison is made with prior examination dated 10/23/2020. FINDINGS: Lumbar Spine (L1-L4): g/cm2 (1.083) / T-score (0.3) / Z-score (3.1) Findings are suggestive of normal bone density with a low fracture risk. Left Femur Total: g/cm2 (0.724) / T-score (-1.8) / Z-score (0.5) Left Femoral Neck: g/cm2 (0.592) / T-score (-2.3) / Z-score (0.1) Right Femur Total: g/cm2 (0.739) / T-score (-1.7) / Z-score (0.6) Right Femoral Neck: g/cm2 (0.626) / T-score (-2.0) / Z-score (0.5) The T-Scores on the most recent prior examination were: Lumbar Spine (L1-L4): There has been improvement of bone density since the previous examination. Left Femur Total: which represents a worsening of 5%. Right Femur Total: which represents an improvement of 7.9%. BD/Dexa Bone Density Study IMPRESSION: The patient is considered osteopenic as outlined below according to World Wisam Organization (WHO) criteria with a high fracture risk. There has been improvement of bone density since the previous examination. Reference Information: The T-score is the number of standard deviations above or below the standard which is normal for young adults at their peak bone mineral density. The World Health Organization (WHO) interprets the T-scores as follows: Above -1 Normal bone density Between -1 and -2.5 Osteopenia Equal to / or below -2.5 Osteoporosis As a practical clinical guideline, osteopenia may be graded as follows: Mild -1 through -1.5 Moderate -1.6 through -2.0 Severe -2.1 through -2.4 The Z-score is the number of standard deviations above or below age-matched controls. A Z-score of less than -1.5 would be considered abnormal. References: 1. NIH Osteoporosis and Related Bone Diseases www osteo.org 2. International Society for Clinical Densitometry www iscd.org 3. National Osteoporosis Foundation www nof.org Electronically Signed: Anjel Li MD at 12:41 EST ,
== END | disposition home or self-care (01) ==
PROVIDERS: PCP Internal Medicine; Visit Provider Internal Medicine
DX: Z12.31 Encounter for screening mammogram for malignant neoplasm of breast (principal); M85.80 Other specified disorders of bone density and structure, unspecified site; Z78.0 Asymptomatic menopausal state
CPT/HCPCS: 77080

== ENCOUNTER → 2022-12-29 | Outpatient (CLI) | payer MEDICARE, SELFPAY ==
--- NOTE | 2022-12-29 14:11 | BI_ITS ---
MAMMOGRAPHY - UNILATERAL SCREENING: LEFT BREAST REASON FOR EXAM: Female, 82 years old. Routine annual screening examination (unilateral). PERTINENT HISTORY: Personal history of breast cancer. Prior right mastectomy. Prior left stereotactic breast biopsy. TECHNIQUE: Digital unilateral breast david (3D mammographic acquisition) in the CC and MLO projections. 2-D mediolateral oblique (MLO) and craniocaudad (CC) views of both breasts were obtained. CAD: Full Field Digital Mammography with Computer Added Detection was performed. COMPARISON: Comparison is made with prior study dated 12/23/2021 and 12/16/2020. FINDINGS: Breast Composition: The breasts are almost entirely fatty. There are no dominant masses or suspicious calcifications. A tissue clip marker is seen in the anterior central medial portion of the left breast. No other significant abnormalities are identified. There has been no significant change since the prior study. BI/SCREEN MAMM (CAD) W/DAVID UNI L IMPRESSION: Stable unilateral screening mammogram. Yearly follow-up mammogram recommended. (A) ASSESSMENT CATEGORY: BIRADS Category 2: Benign. A letter regarding these results will be sent to the patient by the facility within 30 days. Approximately 10% of breast cancers are not detected by mammography. A normal mammogram should not delay biopsy of a clinically suspicious abnormality. [id number] Electronically Signed: Anjel Li MD at 15:19 EST ,
== END | disposition home or self-care (01) ==
LOC: OPBI 14:09
PROVIDERS: PCP Internal Medicine; Visit Provider Internal Medicine Medical Oncology
DX: Z12.31 Encounter for screening mammogram for malignant neoplasm of breast (principal)
CPT/HCPCS: 77063; 77067

== ENCOUNTER → 2024-01-03 | Outpatient (CLI) | payer MEDICARE, SELFPAY ==
--- NOTE | 2024-01-03 09:50 | BI_ITS ---
MAMMOGRAPHY - UNILATERAL SCREENING: LEFT BREAST REASON FOR EXAM: Female, 83 years old. Routine annual screening examination (unilateral). PERTINENT HISTORY: Personal history of breast cancer. Prior right mastectomy. Prior left stereotactic breast biopsy. TECHNIQUE: Digital unilateral breast david (3D mammographic acquisition) in the CC and MLO projections. 2-D mediolateral oblique (MLO) and craniocaudad (CC) views of both breasts were obtained. CAD: Full Field Digital Mammography with Computer Added Detection was performed. COMPARISON: Comparison is made with prior study dated December 29, 2022 and December 23, 2021. FINDINGS: Breast Composition: The breasts are almost entirely fatty. There are no dominant masses or suspicious calcifications. A tissue clip marker is once again seen in the anterior central medial portion of the left breast. No other significant abnormalities are identified. There has been no significant change since the prior study. BI/SCREEN MAMM (CAD) W/DAVID UNI L IMPRESSION: Stable unilateral screening mammogram. Yearly follow-up mammogram recommended. (A) ASSESSMENT CATEGORY: BIRADS Category 2: Benign. A letter regarding these results will be sent to the patient by the facility within 30 days. Approximately 10% of breast cancers are not detected by mammography. A normal mammogram should not delay biopsy of a clinically suspicious abnormality. [id number] Electronically Signed: Anjel Li MD at 11:09 EST ,
== END | disposition home or self-care (01) ==
LOC: OPBI 09:50
PROVIDERS: PCP Internal Medicine; Referring Provider Internal Medicine Medical Oncology; Visit Provider Internal Medicine Medical Oncology
DX: Z12.31 Encounter for screening mammogram for malignant neoplasm of breast (principal); Z90.11 Acquired absence of right breast and nipple; Z85.3 Personal history of malignant neoplasm of breast
CPT/HCPCS: 77063; 77067

== ENCOUNTER → 2025-07-24 | Outpatient (CLI) | payer MEDICARE, SELFPAY ==
--- NOTE | 2025-07-24 08:11 | BD_ITS ---
PROCEDURE: DEXA BONE DENSITY STUDY 07/24/2025 REASON FOR EXAM: F, age 85 y/o . Postmenopausal. TECHNIQUE: Procedure Code: BDDBD Modality: DX Procedure: DEXA BONE DENSITY STUDY COMPARISON: Prior study dated November 10, 2022. FINDINGS: BMD and T-SCORES Lumbar spine: 1.018 g/cm2, T-score -0.1 Levels: L1 through L4 Change from prior: Loss of 4.3%. Left femoral neck: 0.563 g/cm2, T-score -2.6 Femoral neck comparison data not recommended for monitoring change. Left total hip: 0.709 g/cm2, T-score -1.9 Change from prior: Loss of 2%. Right femoral neck: 0 point 588 g/cm2, T-score -2.3 Femoral neck comparison data not recommended for monitoring change. Right total hip: 0.703 g/cm2, T-score -2.0 Change from prior: Loss of 4.9%. The World Health Organization has defined the following categories based on bone density: Normal bone density: T-score equal to or greater than -1.0 Osteopenia: T-score between -1.0 and -2.5 Osteoporosis: T-score equal to or less than -2.5 FRAX (or Comparable) Fracture Risk Assessment: 10 Year Probability of Fracture: Major Osteoporotic Fracture: 22% Hip Fracture: 7.2% (Note: FRAX is not to be reported in setting of normal range bone density, osteoporosis on DEXA, known history of osteoporosis, prior osteoporotic hip or vertebral fracture, or for any patient undergoing pharmacological treatment for bone loss.) The National Osteoporosis Foundation (NOF) recommends pharmacological treatment for patients with a FRAX 10-year risk of 3% or higher for a hip fracture, or 20% or higher for a major osteoporotic fracture, to prevent osteoporosis and reduce fracture risk. The patient does meet the pharmacological treatment recommendations for prevention of osteoporosis. BD/Dexa Bone Density Study IMPRESSION: OSTEOPOROSIS. Recommend follow-up as clinically warranted. Reading Location: [place] [id number]
== END | disposition home or self-care (01) ==
LOC: OPBD 08:02
PROVIDERS: PCP Internal Medicine; Referring Provider Internal Medicine; Visit Provider Internal Medicine
DX: M85.80 Other specified disorders of bone density and structure, unspecified site (principal); Z78.0 Asymptomatic menopausal state
CPT/HCPCS: 77080